=== PATIENT | female | born 1965 | race Caucasian/White ===

== ENCOUNTER 2017-09-11 01:36 | Emergency (ER) | payer MEDICARE ==
--- OUTSIDE RECORDS SUMMARY | 2017-09-11 01:44 | XMS REPORT ---
:1965 External Reference #:[id number] Author Organization [facility] Address [address] [place] [address] Phone [phone] Care Team Providers Name Role Phone Daniela Segovia MD Primary Care Physician Unavailable Payers Type Date Identification Payment Subscriber Numbers Provider Health Maintenance Effective: Policy Number: Medicare Chucky Akhtar (O) 06/10/2013 [id number] [facility] Group Number: [id number] [address] [address] PayID: [id number] [place] [address] Medigap Part B Expires: 06/09/2013 Policy Number: [facility] Lianna Beard [id number] Group Number: [id number] [address] PayID: [id number] [place] [address] Advance Directives Type Date Description Status Comment Other Directive 06/02/2014 Health Care Proxy Current and Verified Problems Date Description Provider Status Onset: 02/21/2011 Asthma without status asthmaticus Tete Chaparro, N.P. Active Onset: 02/21/2011 Gastroesophageal reflux disease Tete Chaparro, N.P. Active Onset: 02/21/2011 Gout Tete Chaparro N.P. Active Onset: 04/25/2015 Shoulder joint pain Jackson Fan M.D. Active Onset: 08/13/2017 Strain of musc/tend the rotator cuff of Janet Garcia MD Active left shoulder, subs Onset: 08/13/2017 Derangement of knee Janet Garcia MD Active Onset: 08/13/2017 Knee pain Janet Garcia MD Active Onset: 08/13/2017 Prosthetic arthroplasty of shoulder Janet Garcia MD Active Onset: 08/13/2017 Localized, primary osteoarthritis of the Janet Garcia MD Active shoulder region Family History Date Family Member(s) Problem(s) Comments General Diabetes General Heart Disease General Hypertension General Cancer Father due to Fractured back and () - age 86 Ribs Father [place] Father Hypertension Father Cancer, Esophagus Father Hyperlipidemia Father Arthritis, Osteo Mother due to Bradycardia () Mother due to Cancer, Lung () - in her 70's Cervical cancer, Hyperlipidemia,HTN First Brother Mental Illness age 54 Second Brother Hyperlipidemia Second Brother [place] Age 56 First Sister Mental Illness In a wheelchair but no one knows why age 58 Second Sister 52 Mental Illness Social History Type Date Description Comments Lives With spouce 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 Nebulizer 06/24/ Active Misc 1unit use as 466.0 2014 s needed Varn, N.P. Flovent HFA 06/24/ Active Aerosol 110mcg/Ac 12uni Inhale 2 Tete 2015 t ts Puffs By Varn, Mouth Two N.P. Times A Day as Needed Synthroid 01/17/ Active Tablets 50mcg 30tab Take One Tete 2014 s Tablet By Varn, Mouth Every N.P. Day Ventolin HFA 04/15/ Active Aerosol 108(90Bas 1unit 2 puffs by Tete 2012 e) s mouth four Varn, mcg/Act times a day N.P. as needed Tramadol HCL / Active Tablets 50mg 120ta 1 tablet by Jackson 0000 bs mouth four Young, times a day M.D. as needed prn pain Senna S / Active Tablets 8.6-50mg 2 po qd prn Unknown 0000 Miralax / Active Powder 3350NF 238gm 17 gm qd Unknown 0000 mixed w/ 8 oz water/juice Zofran / Active Tablets 4mg 60tab 1 every 6 Tete 0000 s hours as Varn, needed N.P. nausea Calcium Chew / Active 500mg 90uni Two by mouth Unknown 0000 ts every day Tramadol HCL / Active Tablets ER 100mg 15tab 1 tabs by Unknown ER 0000 24HR s mouth every day Gabapentin / Active Capsules 300mg 120ca Take One Tete 0000 ps Capsule By Varn, Mouth Every N.P. Morning One Capsule In Afternoon Lyrica / Active Capsules 150mg take one cap Unknown 0000 at bedtime Colchicine / Active Tablets 0.6mg 1 by mouth Unknown 0000 twice a day Co-Enzyme Q-10 / Active Capsules 100mg 1 by mouth Unknown 0000 every day Fish Oil / Active Capsules 500mg 1 by mouth Unknown 0000 twice a day(pt is now taking lovaza) Tylenol / Active Capsules 325mg 2 tablets Unknown 0000 every 4 hours as needed for pain Azithromycin 04/29/ Hx Tablets 250mg 6tabs two tabs day Tete 2016 - one, one Varn, 05/09/ daily till N.P. 2017 gone Benzonatate 04/29/ Hx Capsules 100mg 30cap one by mouth Tete 2016 three times Varn, 05/13/ daily as N.P. 2017 needed for cough Prednisone 11/26/ Hx Tablets 20mg 30tab 3 tabs daily L23.7 Tete 2016 for 3 days, Varn, 02/18/ 2 tabs daily N.P. 2017 for 3 days, 1 tab daily for 7 days, 1/2 tab for 14 days Prednisone 01/05/ Hx Tablets 10mg 40tab 4 tablets by R21 Tete 2015 mouth for 4 Varn, 01/21/ days 3 N.P. 2016 tablets by mouth for 4 days 2 tablets by mouth for 4 days 1 tablet by mouth for 4 days Cetirizine HCL 01/05/ Hx Tablets 10mg 30tab 1 by mouth R21 Tete 2015 every day Varn, 02/18/ N.P. 2017 Ranitidine HCL 07/29/ Hx Capsules 150mg 60cap one capsule R21 [place] 2015 - s every 12 Varn, 02/18/ hours N.P. 2016 Lansoprazole 01/17/ Hx Capsules DR 30mg 90cap 1 by mouth [place] 2014 - s every day Varn, 01/05/ N.P. 2015 Nystatin 08/23/ Hx Suspension [id number] 16oz 4 112.0 [place] 2015 - t/ML milliliters Varn, 09/06/ four times a N.P. 2014 day, swish and swallow for 14 days Prednisone 06/24/ Hx Tablets 10mg 40tab as directed 466.0 [place] 2014 - s Varn, 07/10/ N.P. 2014 Ipratropium 06/24/ Hx Solution 0.5-2.5(3 60uni 1 vial in [facility].0 [place] 2014 - )mg/3ML ts nebulizer Varn, rol Sulfate 08/08/ three times N.P. 2014 a day as needed for asthma 493.90 Benzonatate 06/17/2014 - Hx Capsules 100mg 30caps one by mouth [place] 07/01/2014 three times Varn, N.P. daily as needed for cough Azithromycin 06/09/2014 - Hx Tablets 250mg 6tabs two tabs day [address] [place] [address] 06/19/2014 one, one daily .0 Varn, N.P. till gone Medrol (Severino) 06/09/2014 - Hx Tablets 4mg 1Pak as directed [address] [place] [address] 06/15/2014 .0 Varn, N.P. Prevacid 12/30/2013 - Hx Capsules DR 30mg 30caps Take One 530 [place] 01/06/2016 Capsule By .81 Varn, N.P. Mouth Every Day Benzonatate 09/10/2013 - Hx Capsules 100mg 30caps one by mouth [place] 09/24/2013 three times Varn, N.P. daily as needed for cough Azithromycin 09/08/2013 - Hx Tablets 250mg 6tabs two tabs day [address] [place] [address] 09/18/2013 one, one daily .0 Varn, N.P. till gone Medrol (Severino) 09/08/2013 - Hx Tablets 4mg 1Pak as directed [address] [place] [address] 09/14/2013 .0 Varn, N.P. Oxycontin 04/15/2012 - Hx Tablets ER 10mg 40tabs 1 po bid Jackson 12/29/2012 12HR Eugenia Fan Zofran Odt 04/04/2012 - Hx Tablets 4mg 40tabs q4-6h prn Jackson 04/18/2012 Dispers Eugenia Fan Oxycontin 03/20/2012 - Hx Tablets ER 10mg 56tabs 7 tabs po for Jackson 03/20/2012 12HR two days, Eugenia Fan decrease dose by two tabs every two days. Oxycodone HCL 03/20/2012 - Hx Tablets 5mg 90tabs 1-2 po q3h prn Jackson 06/19/2013 breakthrough Eugenia Fan pain Oxycontin 03/20/2012 - Hx Tablets ER 10mg 112tabs Take 7 tabs po Jackson 12/29/2012 12HR bid for 2 days, Eugenia Fan then reduce dose by one tab every two days. Oxycontin 02/12/2012 - Hx Tablets ER 40mg 60tabs 1 po q 4 hours Jackson 12/29/2012 12HR prn pain Eugenia Fan Colace 02/06/2012 - Hx Capsules 100mg 30caps take 1 tablet Jackson 12/29/2012 po bid prn Eugenia Fan consitpation Transderm-Scop 01/16/2012 - Hx Patches 1.5mg 3units 1 patch q 3 Jackson 06/19/2013 72HR days. Apply Eugenia Fan first one the night before surgery. prn nausa Xanax 09/07/2011 - Hx Tablets 1mg 1tabs Take 1 tab po Jackson 01/07/2012 30minutes prior Eugenia Fan to procedure. Lidoderm 02/21/2011 - Hx Patches 5% 30units apply to [facility] 07/06/2011 affected area .41 Cotton, for 12 hrs, Eugenia remove for 12 hrs and repeat prn Ibuprofen 02/21/2011 - Hx Tablets 600mg 120tabs take one tablet M25 Tete 06/17/2015 by mouth every .51 Varn, N.P. 8 hours as 1 needed for pain M19.90 Ultram 07/24/2010 - Hx Tablets 50mg 60tabs 1-2 tablets Daniela 01/07/2012 every 6 Cotton, M.D. hours as needed Tylenol/Codein 05/15/2010 - Hx Tablets 300-30m 20tabs one tablet alex [place] #3 07/24/2010 g by mouth 4 M.D., FACP to 6 hours as needed for pain Flovent HFA 03/16/2010 - Hx Aerosol 44mcg/A 10.600gm 2 puffs Tete 06/24/2014 ct twice daily Varn, N.P. Zithromax 03/16/2010 - Hx Tablets 250mg 1Pack two po Daniela Z-Severino 03/26/2010 initially Eugenia Segovia then one po daily Robitussin ac 03/16/2010 - Hx Solution 120cc 1 to 2 tsp [facility] 03/26/2010 every 4 Cotton, M.DKeyonna hours as needed for cough Albuterol - Hx Aerosol 90mcg/A 1units 2 puffs 4 Daniela 04/15/2013 ct times a day Eugenia Segovia as needed Oxycodone/Acet - Hx Tablets 5-325mg 120tabs one tablet Unknown aminophen 07/06/2011 every 6 hrs as needed Ibuprofen - Hx Tablets 600mg 90tabs 1 tablet Daniela 12/29/2012 every 6 hrs Eugenia Segovia as needed Tramadol HCL - Hx Tablets ER 200mg 30tabs once daily CARTER Paredes 05/10/2014 24HR Pt states Sagr[place]. 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 Immunizations CPT Code Status Date Vaccine Lot # 53260 Given 03/08/2017 Influenza Virus Vaccine, Quadrivalent, Split, Preservative Free Q2039 Given 03/16/2016 Flu Vaccine NOS 37387 Given 03/20/2015 Flu Vaccine Split Virus Preservative Free For Indiv 3Yr Older Q2038 Given 04/04/2014 Fluzone Vaccine Q2038 Given 03/28/2013 Fluzone Vaccine 47772 Given 12/29/2012 Pneumonia Vaccine [id number] 62504 Given 12/29/2012 Tdap - Tetanus/Diptheria/Acellular Pertussis [id number] Q2035 Given 04/17/2012 Afluria Vaccine 85764 Given 04/06/2011 Influenza Virus 3Yrs & Over [id number] 42996 Given 05/04/2009 Influenza Virus Vaccine, Pandemic Formulation 52114 Given 05/04/2009 Administration Swine Flu Shot 05857 Given 02/24/2009 Influenza Virus 3Yrs & Over Vital Signs Date Vital Result Comment 08/23/2017 Height 61.25 inches 5'1.25" Weight 127.00 lb Heart Rate 63 /min BP Systolic 126 mmHg BP Diastolic 70 mmHg Body Temperature 97.5 F O2 % BldC Oximetry 98 % BMI (Body Mass Index) 23.8 kg/m2 08/13/2017 Height 61 inches 5'1" Weight 125.00 lb w/o shoes Heart Rate 56 /min reg BP Systolic Sitting 140 mmHg Lue BP Diastolic Sitting 90 mmHg Lue Respiratory Rate 16 /min Pain Level 6 right shoulder BMI (Body Mass Index) 23.6 kg/m2 02/19/2017 Height 61 inches 5'1" Weight 122.00 lb Heart Rate 56 /min BP Systolic 120 mmHg BP Diastolic 72 mmHg Body Temperature 97.0 F Pain Level 5 BMI (Body Mass Index) 23.0 kg/m2 11/26/2016 Heart Rate 57 /min BP Systolic 120 mmHg BP Diastolic 68 mmHg Body Temperature 98.6 F O2 % BldC Oximetry 99 % 10/03/2016 Weight 119.00 lb Heart Rate 67 /min BP Systolic Sitting 102 mmHg BP Diastolic Sitting 62 mmHg Pain Level 5 R hip, leg, foot O2 % BldC Oximetry 98 % 08/20/2016 Height 61 inches 5'1" Weight 119.00 lb Heart Rate 56 /min BP Systolic 100 mmHg BP Diastolic 54 mmHg O2 % BldC Oximetry 98 % BMI (Body Mass Index) 22.5 kg/m2 01/06/2016 Weight 118.00 lb Heart Rate 66 /min BP Systolic Sitting 118 mmHg BP Diastolic Sitting 76 mmHg Body Temperature 96.3 F O2 % BldC Oximetry 98 % 06/17/2015 Height 61 inches 5'1" Weight 125.00 lb Heart Rate 66 /min BP Systolic Sitting 122 mmHg BP Diastolic Sitting 80 mmHg Respiratory Rate 15 /min Body Temperature 98.4 F O2 % BldC Oximetry 98 % BMI (Body Mass Index) 23.6 kg/m2 04/25/2015 Height 61 inches 5'1" Weight 125.00 lb Pain Level 6 BMI (Body Mass Index) 23.6 kg/m2 04/05/2015 Height 61 inches 5'1" Weight 125.00 lb Pain Level 5 BMI (Body Mass Index) 23.6 kg/m2 01/17/2015 Height 61 inches 5'1" Weight 125.00 lb Heart Rate 62 /min BP Systolic Sitting 118 mmHg BP Diastolic Sitting 72 mmHg Body Temperature 98.0 F O2 % BldC Oximetry 98 % BMI (Body Mass Index) 23.6 kg/m2 12/31/2014 Height 61 inches 5'1" Weight 127.00 lb Heart Rate 66 /min BP Systolic 130 mmHg BP Diastolic 80 mmHg Body Temperature 98.4 F BMI (Body Mass Index) 24.0 kg/m2 08/23/2014 Weight 133.00 lb Heart Rate 64 /min BP Systolic Sitting 115 mmHg BP Diastolic Sitting 79 mmHg 07/02/2014 Weight 126.00 lb Heart Rate 72 /min BP Systolic 138 mmHg BP Diastolic 79 mmHg Body Temperature 97.6 F O2 % BldC Oximetry 98 % 06/24/2014 Weight 126.50 lb Heart Rate 60 /min BP Systolic Sitting 120 mmHg BP Diastolic Sitting 82 mmHg Body Temperature 96.4 F O2 % BldC Oximetry 95 % 06/09/2014 Height 61 inches 5'1" Weight 128.00 lb Heart Rate 62 /min BP Systolic Sitting 90 mmHg BP Diastolic Sitting 60 mmHg Body Temperature 100.2 F O2 % BldC Oximetry 96 % BMI (Body Mass Index) 24.2 kg/m2 05/10/2014 Height 61 inches 5'1" Weight 131.00 lb Heart Rate 68 /min BP Systolic Sitting 136 mmHg BP Diastolic Sitting 78 mmHg BMI (Body Mass Index) 24.7 kg/m2 12/30/2013 Height 61 inches 5'1" Weight 129.75 lb Heart Rate 69 /min BP Systolic Sitting 121 mmHg BP Diastolic Sitting 75 mmHg Body Temperature 98.5 F BMI (Body Mass Index) 24.5 kg/m2 09/08/2013 Weight 133.00 lb Heart Rate 55 /min BP Systolic Sitting 118 mmHg BP Diastolic Sitting 64 mmHg Respiratory Rate 15 /min Body Temperature 98.6 F O2 % BldC Oximetry 97 % 06/19/2013 Weight 131.00 lb Heart Rate 62 /min BP Systolic Sitting 118 mmHg BP Diastolic Sitting 66 mmHg 12/29/2012 Height 61 inches 5'1" Weight 129.00 lb Heart Rate 60 /min BP Systolic Sitting 138 mmHg BP Diastolic Sitting 60 mmHg BMI (Body Mass Index) 24.4 kg/m2 01/07/2012 Height 61 inches 5'1" Weight 136.00 lb Heart Rate 60 /min BP Systolic Sitting 116 mmHg BP Diastolic Sitting 78 mmHg BMI (Body Mass Index) 25.7 kg/m2 07/31/2011 Height 61 inches 5'1" Weight 133.00 lb Heart Rate 79 /min BP Systolic 135 mmHg BP Diastolic 91 mmHg BMI (Body Mass Index) 25.1 kg/m2 07/20/2011 Height 61 inches 5'1" Weight 137.00 lb Heart Rate 72 /min BP Systolic Sitting 106 mmHg BP Diastolic Sitting 68 mmHg BMI (Body Mass Index) 25.9 kg/m2 07/06/2011 Height 61 inches 5'1" Weight 135.00 lb Heart Rate 84 /min BP Systolic Sitting 122 mmHg BP Diastolic Sitting 68 mmHg BMI (Body Mass Index) 25.5 kg/m2 02/21/2011 Height 61 inches 5'1" Weight 130.00 lb Heart Rate 60 /min BP Systolic Sitting 124 mmHg BP Diastolic Sitting 62 mmHg BMI (Body Mass Index) 24.6 kg/m2 07/24/2010 Height 61 inches 5'1" Weight 134.00 lb Heart Rate 60 /min BP Systolic 102 mmHg BP Diastolic 62 mmHg BMI (Body Mass Index) 25.3 kg/m2 03/16/2010 Weight 131.00 lb Heart Rate 62 /min BP Systolic 106 mmHg BP Diastolic 70 mmHg Body Temperature 98.6 F Results Test Date Test Result H/L Range Note Laboratory test finding 11/13/2016 CRP High Sensitivity 0.39 mg/L 1 Lipid Profile 11/13/2016 Triglycerides 75 mg/dL 2 (Trig/Chol/HDL) Cholesterol 202 mg/dL 3 HDL Cholesterol 55.8 mg/dL 4 LDL Cholesterol 131 mg/dL 5 Laboratory test finding 10/03/2016 Uric Acid 5.0 mg/dL 2.3-6.6 Laboratory test finding 08/23/2016 Lyme Disease Serology Negative Negative 6 Rheumatoid Factor <15 IU/mL <15 7 Erythrocyte Sed Rate 14 mm/Hr 0-30 Comp Metabolic Panel 08/11/2016 Sodium 138 mmol/L 133-145 Potassium 4.2 mmol/L 3.5-5.0 Chloride 104 mmol/L 101-111 Co2 Carbon Dioxide 33 mmol/L High 22-32 Anion Gap 1 mmol/L Low 2-11 Glucose 79 mg/dL 70-100 Blood Urea Nitrogen 13 mg/dL 6-24 Creatinine 0.79 mg/dL 0.51-0.95 BUN/Creatinine Ratio 16.5 8-20 Calcium 9.3 mg/dL 8.6-10.3 Total Protein 6.1 g/dL Low 6.4-8.9 Albumin 3.7 g/dL 3.2-5.2 Globulin 2.4 g/dL 2-4 Albumin/Globulin Ratio 1.5 1-3 Total Bilirubin 0.60 mg/dL 0.2-1.0 Alkaline Phosphatase 68 U/L 34-104 Alt 18 U/L 7-52 Ast 18 U/L 13-39 Egfr Non- 76.1 >60 Egfr 97.9 >60 8 Lipid Profile (Trig/Chol/HDL) 08/11/2016 Triglycerides 82 mg/dL 9 Cholesterol 220 mg/dL 10 HDL Cholesterol 52.6 mg/dL 11 LDL Cholesterol 151 mg/dL 12 Comp Metabolic Panel 06/17/2015 Sodium 137 mmol/L 133-145 Potassium 4.5 mmol/L 3.5-5.0 Chloride 103 mmol/L 101-111 Co2 Carbon Dioxide 31 mmol/L 22-32 Anion Gap 3 mmol/L 2-11 Glucose 89 mg/dL 70-100 Blood Urea Nitrogen 13 mg/dL 6-24 Creatinine 0.82 mg/dL 0.51-0.95 BUN/Creatinine Ratio 15.9 8-20 Calcium 9.8 mg/dL 8.6-10.3 Total Protein 6.8 g/dL 6.4-8.9 Albumin 4.2 g/dL 3.2-5.2 Globulin 2.6 g/dL 2-4 Albumin/Globulin Ratio 1.6 1-3 Total Bilirubin 0.60 mg/dL 0.2-1.0 Alkaline Phosphatase 46 U/L 34-104 Alt 12 U/L 7-52 Ast 15 U/L 13-39 Egfr Non- 73.2 >60 Egfr 94.1 >60 13 Laboratory test 06/17/2015 Urine Culture And SEE RESULT BELOW 14 finding Sensitivities Comp Metabolic Panel 01/05/2015 Sodium 138 mmol/L 133-145 Potassium 4.1 mmol/L 3.5-5.0 Chloride 102 mmol/L 101-111 Co2 Carbon Dioxide 32 mmol/L 22-32 Anion Gap 4 mmol/L 2-11 Glucose 71 mg/dL 70-100 Blood Urea Nitrogen 13 mg/dL 6-24 Creatinine 0.74 mg/dL 0.51-0.95 BUN/Creatinine Ratio 17.6 8-20 Calcium 9.3 mg/dL 8.6-10.3 Total Protein 6.2 g/dL Low 6.4-8.9 Albumin 3.8 g/dL 3.2-5.2 Globulin 2.4 g/dL 2-4 Albumin/Globulin Ratio 1.6 1-3 Total Bilirubin 0.60 mg/dL 0.2-1.0 Alkaline Phosphatase 51 U/L 34-104 Alt 12 U/L 7-52 Ast 10 U/L Low 13-39 Egfr Non- 82.7 >60 Egfr 106.4 >60 15 Lipid Profile (Trig/Chol/HDL) 01/05/2015 Triglycerides 72 mg/dL 16 Cholesterol 223 mg/dL 17 HDL Cholesterol 64.1 mg/dL 18 LDL Cholesterol 145 mg/dL 19 Comp Metabolic Panel 09/23/2014 Sodium 138 mmol/L 133-145 Potassium 4.3 mmol/L 3.5-5.0 Chloride 102 mmol/L 101-111 Co2 Carbon Dioxide 32 mmol/L 22-32 Anion Gap 4 mmol/L 2-11 Glucose 82 mg/dL 70-100 Blood Urea Nitrogen 15 mg/dL 6-24 Creatinine 0.77 mg/dL 0.51-0.95 BUN/Creatinine Ratio 19.5 8-20 Calcium 9.6 mg/dL 8.6-10.3 Total Protein 6.4 g/dL 6.4-8.9 Albumin 4.1 g/dL 3.2-5.2 Globulin 2.3 g/dL 2-4 Albumin/Globulin Ratio 1.8 1-3 Total Bilirubin 0.60 mg/dL 0.2-1.0 Alkaline Phosphatase 49 U/L 34-104 Alt 13 U/L 7-52 Ast 15 U/L 13-39 Egfr Non- 79.0 >60 Egfr 101.6 >60 20 Comp Metabolic Panel 06/21/2014 Sodium 138 mmol/L 133-145 Potassium 4.1 mmol/L 3.5-5.0 Chloride 104 mmol/L 101-111 Co2 Carbon Dioxide 30 mmol/L 22-32 Anion Gap 4 mmol/L 2-11 Glucose 92 mg/dL 70-100 Blood Urea Nitrogen 11 mg/dL 6-24 Creatinine 0.83 mg/dL 0.51-0.95 BUN/Creatinine Ratio 13.3 8-20 Calcium 9.4 mg/dL 8.6-10.3 Total Protein 6.7 g/dL 6.4-8.9 Albumin 3.8 g/dL 3.2-5.2 Globulin 2.9 g/dL 2-4 Albumin/Globulin Ratio 1.3 1-3 Total Bilirubin 0.60 mg/dL 0.2-1.0 Alkaline Phosphatase 51 U/L 34-104 Alt 16 U/L 7-52 Ast 14 U/L 13-39 Egfr Non- 72.5 >60 Egfr 93.2 >60 21 Laboratory test finding 03/03/2014 TSH (Thyroid Stimulating 1.89 IU/mL 0.34-5.60 Horm) Comp Metabolic Panel 02/18/2014 Sodium 137 mmol/L 133-145 Potassium 4.6 mmol/L 3.7-5.6 Chloride 103 mmol/L 101-111 Co2 Carbon Dioxide 29 mmol/L 22-32 Anion Gap 5 mmol/L 2-11 Glucose 82 mg/dL 70-100 Blood Urea Nitrogen 14 mg/dL 6-24 Creatinine 0.72 mg/dL 0.51-0.95 BUN/Creatinine Ratio 19.4 8-20 Calcium 9.3 mg/dL 8.6-10.3 Total Protein 7.1 g/dL 6.4-8.9 Albumin 4.1 g/dL 3.2-5.2 Globulin 3.0 g/dL 2-4 Albumin/Globulin Ratio 1.4 1-3 Total Bilirubin 0.60 mg/dL 0.2-1.0 Alkaline Phosphatase 49 U/L 34-104 Alt 14 U/L 7-52 Ast 17 U/L 13-39 Egfr Non- 85.7 >60 Egfr 110.3 >60 22 Laboratory test 01/11/2014 TSH (Thyroid 5.67 IU/mL High 0.34-5.60 23, 24 finding Stimulating Horm) Comp Metabolic Panel 01/11/2014 Sodium 138 mmol/L 133-145 23 Potassium 4.1 mmol/L 3.7-5.6 23 Chloride 104 mmol/L 101-111 23 Co2 Carbon Dioxide 31 mmol/L 22-32 23 Anion Gap 3 mmol/L 2-11 23 Glucose 88 mg/dL 70-100 23 Blood Urea Nitrogen 16 mg/dL 6-24 23 Creatinine 0.81 mg/dL 0.51-0.95 23 BUN/Creatinine Ratio 19.8 8-20 23 Calcium 9.1 mg/dL 8.6-10.3 23 Total Protein 6.8 g/dL 6.4-8.9 23 Albumin 4.1 g/dL 3.2-5.2 23 Globulin 2.7 g/dL 2-4 23 Albumin/Globulin Ratio 1.5 1-3 23 Total Bilirubin 0.60 mg/dL 0.2-1.0 23 Alkaline Phosphatase 56 U/L 34-104 23 Alt 11 U/L 7-52 23 Ast 14 U/L 13-39 23 Egfr Non- 74.8 >60 23 Egfr 96.3 >60 23, 25 Lipid Profile (Trig/Chol/HDL) 01/11/2014 Triglycerides 102 mg/dL 23, 26 Cholesterol 201 mg/dL 23, 27 HDL Cholesterol 53.6 mg/dL 23, 28 LDL Cholesterol 127 mg/dL 23, 29 CBC With Manual Diff 01/11/2014 White Blood Count 5.7 10^3/uL 4.8-10.8 23 Red Blood Count 4.54 10^6/uL 4.0-5.4 23 Hemoglobin 14.1 g/dL 12.0-16.0 23 Hematocrit 41 % 35-47 23 Mean Corpuscular Volume 91 fL 80-97 23 Mean Corpuscular Hemoglobin 31 pg 27-31 23 Mean Corpuscular HGB Conc 34 g/dL 31-36 23 Red Cell Distribution Width 13 % 10.5-15 23 Platelet Count 217 10^3/uL 150-450 23 Mean Platelet Volume 10 um3 7.4-10.4 23 Abs Neutrophils 3.1 10^3/uL 1.5-7.7 23 Abs Lymphocytes 2.0 10^3/uL 1.0-4.8 23 Abs Monocytes 0.4 10^3/uL 0-0.8 23 Abs Eosinophils 0.2 10^3/uL 0-0.6 23 Abs Basophils 0 10^3/uL 0-0.2 23 Abs Nucleated RBC 0 10^3/uL 23 Neutrophil % 59 % 38-83 23 Lymphocytes % 35 % 25-47 23 Monocytes % 1 % 0-13 23 Eosinophils % 5 % 0-6 23 RBC Morphology Normal Normal 23 Laboratory test 12/30/2013 Cytology RUN DATE: finding <SEE NOTE> HPV High Risk 12/30/2013 Human Papillomavirus See Comment 31 Source HPV High Risk Type 16, PCR Negative Negative HPV High Risk Type 18, PCR Negative Negative HPV Other Risk types Negative Negative 32 Laboratory test finding 11/12/2013 Inr 0.94 0.85-1.06 Activated Partial Thrombo Time 32.1 seconds 24.0-36.1 Comp Metabolic Panel 11/12/2013 Sodium 137 mmol/L 133-145 Potassium 4.8 mmol/L 3.7-5.6 Chloride 105 mmol/L 101-111 Co2 Carbon Dioxide 29 mmol/L 22-32 Anion Gap 3 mmol/L 2-11 Glucose 83 mg/dL 70-100 Blood Urea Nitrogen 13 mg/dL 6-24 Creatinine 0.78 mg/dL 0.51-0.95 BUN/Creatinine Ratio 16.7 8-20 Calcium 9.3 mg/dL 8.6-10.3 Total Protein 6.8 g/dL 6.4-8.9 Albumin 4.1 g/dL 3.2-5.2 Globulin 2.7 g/dL 2-4 Albumin/Globulin Ratio 1.5 1-3 Total Bilirubin 0.60 mg/dL 0.2-1.0 Alkaline Phosphatase 49 U/L 34-104 Alt 13 U/L 7-52 Ast 16 U/L 13-39 Egfr Non- 78.2 >60 Egfr 100.5 >60 33 Comp Metabolic Panel 08/12/2013 Sodium 137 mmol/L 133-145 Potassium 5.0 mmol/L 3.7-5.6 Chloride 104 mmol/L 101-111 Co2 Carbon Dioxide 29 mmol/L 22-32 Anion Gap 4 mmol/L 2-11 Glucose 85 mg/dL 70-100 Blood Urea Nitrogen 13 mg/dL 6-24 Creatinine 0.78 mg/dL 0.51-0.95 BUN/Creatinine Ratio 16.7 8-20 Calcium 9.9 mg/dL 8.6-10.3 Total Protein 7.0 g/dL 6.4-8.9 Albumin 4.3 g/dL 3.2-5.2 Globulin 2.7 g/dL 2-4 Albumin/Globulin Ratio 1.6 1-3 Total Bilirubin 0.70 mg/dL 0.2-1.0 Alkaline Phosphatase 48 U/L 34-104 Alt 13 U/L 7-52 Ast 16 U/L 13-39 Egfr Non- 78.2 >60 Egfr 100.5 >60 34 Comp Metabolic Panel 04/13/2013 Sodium 138 mmol/L 133-145 Potassium 4.4 mmol/L 3.5-5.0 Chloride 103 mmol/L 101-111 Co2 Carbon Dioxide 30.0 mmol/L 22-32 Anion Gap 5.0 mmol/L 2-11 Glucose 61 mg/dL Low 70-100 Blood Urea Nitrogen 15 mg/dL 6-24 Creatinine 0.60 mg/dL 0.50-1.40 BUN/Creatinine Ratio 25.0 High 8-20 Calcium 9.7 mg/dL 8.1-9.9 Total Protein 6.6 g/dL 6.2-8.1 Albumin 3.8 g/dL 3.6-5.4 Globulin 2.8 g/dL 2-4 Albumin/Globulin Ratio 1.4 1-3 Total Bilirubin 0.9 mg/dL 0.4-1.5 Alkaline Phosphatase 58 U/L 30-110 Alt 16 U/L 14-54 Ast 18 U/L 12-42 Egfr Non- 106.3 >60 Egfr 136.6 >60 35 Lipid Profile (Trig/Chol/HDL) 01/07/2013 Triglycerides 89 mg/dL 40-200 Cholesterol 186 mg/dL Less than 200 HDL Cholesterol 50 mg/dL 40-60 36 Cholesterol/HDL Ratio 3.7 Average 1-4.44 LDL Cholesterol 118.2 High Less Than 100 37 Comp Metabolic Panel 01/07/2013 Sodium 138 mmol/L 133-145 Potassium 4.4 mmol/L 3.5-5.0 Chloride 105 mmol/L 101-111 Co2 Carbon Dioxide 29.0 mmol/L 22-32 Anion Gap 4.0 mmol/L 2-11 Glucose 91 mg/dL 70-100 Blood Urea Nitrogen 14 mg/dL 6-24 Creatinine 0.80 mg/dL 0.50-1.40 BUN/Creatinine Ratio 17.5 8-20 Calcium 9.6 mg/dL 8.1-9.9 Total Protein 6.2 g/dL 6.2-8.1 Albumin 3.6 g/dL 3.6-5.4 Globulin 2.6 g/dL 2-4 Albumin/Globulin Ratio 1.4 1-3 Total Bilirubin 0.7 mg/dL 0.4-1.5 Alkaline Phosphatase 47 U/L 30-110 Alt 13 U/L Low 14-54 Ast 15 U/L 12-42 Egfr Non- 76.2 >60 Egfr 98.0 >60 38 Laboratory test 01/07/2013 TSH (Thyroid Stimulating 4.31 miu/mL 0.34- 5.60 39 finding Horm) Human Papilloma Virus 12/31/2012 Human Papillomavirus See Comment 40 Source Human Papillomavirus High Risk Negative Negative 41 Laboratory test finding 12/29/2012 Cytology RUN DATE: 12/31/ <SEE 42 NOTE> Comp Metabolic Panel 10/22/2012 Sodium 136 mmol/L 133-145 Potassium 4.9 mmol/L 3.5-5.0 Chloride 102 mmol/L 101-111 Co2 Carbon Dioxide 27.0 mmol/L 22-32 Anion Gap 7.0 mmol/L 2-11 Glucose 134 mg/dL High 70-100 Blood Urea Nitrogen 17 mg/dL 6-24 Creatinine 0.80 mg/dL 0.50-1.40 BUN/Creatinine Ratio 21.3 High 8-20 Calcium 9.4 mg/dL 8.1-9.9 Total Protein 6.5 g/dL 6.2-8.1 Albumin 3.8 g/dL 3.6-5.4 Globulin 2.7 g/dL 2-4 Albumin/Globulin Ratio 1.4 1-3 Total Bilirubin 0.7 mg/dL 0.4-1.5 Alkaline Phosphatase 53 U/L 30-110 Alt 16 U/L 14-54 Ast 20 U/L 12-42 Egfr Non- 76.2 >60 Egfr 98.0 >60 43 CBC No Diff 10/22/2012 White Blood Count 8.0 10^3/uL 4.8-10.8 Red Blood Count 4.28 10^6/uL 4.0-5.4 Hemoglobin 13.3 g/dL 12.0-16.0 Hematocrit 39 % 35-47 Mean Corpuscular Volume 92 fL 80-97 Mean Corpuscular Hemoglobin 31 pg 27-31 Mean Corpuscular HGB Conc 34 g/dL 31-36 Red Cell Distribution Width 13 % 10.5-15 Platelet Count 178 10^3/uL 150-450 Mean Platelet Volume 10 um3 7.4-10.4 CBC With Manual Diff 01/08/2012 White Blood Count 6.4 CUMM 4.8-10.8 Red Cell Count 3.99 CUMM Low 4.2-5.4 Hemoglobin 12.8 g/dL 12.0-16.0 Hematocrit 37 % 35-47 Mean Corpuscular Volume 93 um3 79-97 Mean Corpuscular Hemoglob 32 pg High 27-31 Mean Corpuscular HGB Cone 35 g/dL 32-36 Redcell Distribution WDTH 13 % 10.5-15 Platelet Count 194 CUMM 150-450 Mean Platelet Volume 9.8 um3 7.4-10.4 Absolute Neutrophil Count 4.3 1.5-7.7 Polysegmented Neutrophil 70 % 38-83 Lymphocyte 21 % Low 25-47 Monocyte 5 % 0-13 Eosinophil 4 % 0-6 RBC Morphology NORMAL Comp Metabolic Panel 01/08/2012 Sodium 136 mmol/L 135-145 Potassium 4.1 mmol/L 3.5-5.0 Chloride 102 mmol/L 101-111 Co2 (Carbon Dioxide) 28.0 mmol/L 22-32 Anion Gap 6.0 mmol/L 2-11 44 Glucose 113 mg/dL High 70-100 BUN 13 mg/dL 6-24 Creatinine 0.7 mg/dL 0.50-1.40 One Over Creatinine 1.42 BUN/Creatinine Ratio 18.6 8-20 Calcium 9.5 mg/dL 8.1-9.9 Total Protein 5.9 GM/DL Low 6.2-8.1 Albumin 3.6 GM/DL 3.6-5.4 Globulin 2.3 GM/DL 2-4 Albumin/Globulin Ratio 1.6 1-3 Bilirubin Total 1.0 mg/dL 0.4-1.5 45 Alkaline Phosphatase 51 U/L 30-110 Alt (SGPT) 20 U/L 14-54 Ast (Sgot) 18 U/L 12-42 eGFR Non- 89.3 > 60 eGFR 114.9 > 60 46 Protime 01/08/2012 Inr 0.89 0.88-1.13 47 Protime 10.5 SEC 10.3-13.5 48 Comp Metabolic Panel 11/01/2011 Sodium 137 mmol/L 135-145 Potassium 4.2 mmol/L 3.5-5.0 Chloride 107 mmol/L 101-111 Co2 (Carbon Dioxide) 27.0 mmol/L 22-32 Anion Gap 3.0 mmol/L 2-11 49 Glucose 67 mg/dL Low 70-100 BUN 13 mg/dL 6-24 Creatinine 0.8 mg/dL 0.50-1.40 One Over Creatinine 1.25 BUN/Creatinine Ratio 16.3 8-20 Calcium 9.1 mg/dL 8.1-9.9 Total Protein 6.2 GM/DL 6.2-8.1 Albumin 3.8 GM/DL 3.6-5.4 Globulin 2.4 GM/DL 2-4 Albumin/Globulin Ratio 1.6 1-3 Bilirubin Total 0.9 mg/dL 0.4-1.5 50 Alkaline Phosphatase 54 U/L 30-110 Alt (SGPT) 15 U/L 14-54 Ast (Sgot) 21 U/L 12-42 eGFR Non- 76.6 > 60 eGFR 98.5 > 60 51 CBC No Diff 11/01/2011 White Blood Count 5.6 CUMM 4.8-10.8 Red Cell Count 4.13 CUMM Low 4.2-5.4 Hemoglobin 13.4 g/dL 12.0-16.0 Hematocrit 38 % 35-47 Mean Corpuscular Volume 91 um3 79-97 Mean Corpuscular Hemoglob 32 pg High 27-31 Mean Corpuscular HGB Cone 36 g/dL 32-36 Redcell Distribution WDTH 13 % 10.5-15 Platelet Count 201 CUMM 150-450 Mean Platelet Volume 9.7 um3 7.4-10.4 Protime 07/19/2011 Inr 0.97 0.88-1.13 52 Protime 11.4 SEC 10.3-13.5 53 Comp Metabolic Panel 07/19/2011 Sodium 137 mmol/L 135-145 Potassium 4.3 mmol/L 3.5-5.0 Chloride 105 mmol/L 101-111 Co2 (Carbon Dioxide) 27.0 mmol/L 22-32 Anion Gap 5.0 mmol/L 2-11 54 Glucose 71 mg/dL 70-100 BUN 13 mg/dL 6-24 Creatinine 0.7 mg/dL 0.50-1.40 One Over Creatinine 1.42 BUN/Creatinine Ratio 18.6 8-20 Calcium 9.3 mg/dL 8.1-9.9 Total Protein 6.6 GM/DL 6.2-8.1 Albumin 3.9 GM/DL 3.6-5.4 Globulin 2.7 GM/DL 2-4 Albumin/Globulin Ratio 1.4 1-3 Bilirubin Total 0.9 mg/dL 0.4-1.5 55 Alkaline Phosphatase 52 U/L 30-110 Alt (SGPT) 17 U/L 14-54 Ast (Sgot) 18 U/L 12-42 eGFR Non- 89.3 > 60 eGFR 114.9 > 60 56 CBC No Diff 07/19/2011 White Blood Count 5.2 CUMM 4.8-10.8 Red Cell Count 4.23 CUMM 4.2-5.4 Hemoglobin 13.3 g/dL 12.0-16.0 Hematocrit 38 % 35-47 Mean Corpuscular Volume 90 um3 79-97 Mean Corpuscular Hemoglob 31 pg 27-31 Mean Corpuscular HGB Cone 35 g/dL 32-36 Redcell Distribution WDTH 13 % 10.5-15 Platelet Count 190 CUMM 150-450 Mean Platelet Volume 10.3 um3 7.4-10.4 Comp Metabolic Panel 06/27/2011 Sodium 135 mmol/L 135-145 Potassium 3.7 mmol/L 3.5-5.0 Chloride 101 mmol/L 101-111 Co2 (Carbon Dioxide) 29.0 mmol/L 22-32 Anion Gap 5.0 mmol/L 2-11 57 Glucose 112 mg/dL High 70-100 BUN 14 mg/dL 6-24 Creatinine 0.7 mg/dL 0.50-1.40 One Over Creatinine 1.42 BUN/Creatinine Ratio 20.0 8-20 Calcium 8.9 mg/dL 8.1-9.9 Total Protein 6.1 GM/DL Low 6.2-8.1 Albumin 3.8 GM/DL 3.6-5.4 Globulin 2.3 GM/DL 2-4 Albumin/Globulin Ratio 1.7 1-3 Bilirubin Total 0.9 mg/dL 0.4-1.5 58 Alkaline Phosphatase 50 U/L 30-110 Alt (SGPT) 15 U/L 14-54 Ast (Sgot) 17 U/L 12-42 eGFR Non- 89.3 > 60 eGFR 114.9 > 60 59 Comp Metabolic Panel 03/22/2011 Sodium 138 mmol/L 135-145 Potassium 4.5 mmol/L 3.5-5.0 Chloride 103 mmol/L 101-111 Co2 (Carbon Dioxide) 28.0 mmol/L 22-32 Anion Gap 7.0 mmol/L 2-11 60 Glucose 88 mg/dL 70-100 BUN 19 mg/dL 6-24 Creatinine 0.8 mg/dL 0.50-1.40 One Over Creatinine 1.25 BUN/Creatinine Ratio 23.8 High 8-20 Calcium 9.6 mg/dL 8.1-9.9 Total Protein 7.0 GM/DL 6.2-8.1 Albumin 4.0 GM/DL 3.6-5.4 Globulin 3.0 GM/DL 2-4 Albumin/Globulin Ratio 1.3 1-3 Bilirubin Total 0.9 mg/dL 0.4-1.5 61 Alkaline Phosphatase 56 U/L 30-110 Alt (SGPT) 16 U/L 14-54 Ast (Sgot) 18 U/L 12-42 eGFR Non- 76.9 > 60 eGFR 98.9 > 60 62 CBC No Diff 03/22/2011 White Blood Count 8.0 CUMM 4.8-10.8 Red Cell Count 4.34 CUMM 4.2-5.4 Hemoglobin 13.6 g/dL 12.0-16.0 Hematocrit 40 % 35-47 Mean Corpuscular Volume 92 um3 79-97 Mean Corpuscular Hemoglob 31 pg 27-31 Mean Corpuscular HGB Cone 34 g/dL 32-36 Redcell Distribution WDTH 14 % 10.5-15 Platelet Count 214 CUMM 150-450 Mean Platelet Volume 10.2 um3 7.4-10.4 1 Low risk: <1.00 Average risk: 1.00-3.00 High risk: >3.00 2 Desirable <150 Borderline high 150-199 High 200-499 Very High >500 3 Desirable <200 Borderline high 200-239 High >239 4 Low <40 Desirable: 40-60 High: >60 5 Desirable: <100 mg/dL Near Optimal: 100-129 mg/dL Borderline High: 130-159 mg/dL High: 160-189 mg/dL Very High: >189 mg/dL 6 Serologic response to B. burgdorferi infection is not detected, but cannot rule out early infection during which low or undetectable antibody levels to B. burgdorferi may be present. If clinically indicated, a new serum specimen should be submitted in 7-14 days. Test Performed by: [facility] [place] [address] 7 Test Performed by: [place] [address] 8 Because ethnic data is not always readily available, this report includes an eGFR for both -Americans and non- Americans. The National Kidney Disease Education Program (NKDEP) does not endorse the use of the MDRD equation for patients that are not between the ages of 18 and 70, are , have extremes of body size, muscle mass, or nutritional status, or are non- or non-. According to the National Kidney Foundation, irrespective of diagnosis, the stage of the disease is based on the level of kidney function: Stage Description GFR(mL/min/1.73 m(2)) 1 Kidney damage with normal or decreased GFR 90 2 Kidney damage with mild decrease in GFR 60-89 3 Moderate decrease in GFR 30-59 4 Severe decrease in GFR 15-29 5 Kidney failure <15 (or dialysis) 9 Desirable <150 Borderline high 150-199 High 200-499 Very High >500 10 Desirable <200 Borderline high 200-239 High >239 11 Low <40 Desirable: 40-60 High: >60 12 Desirable: <100 mg/dL Near Optimal: 100-129 mg/dL Borderline High: 130-159 mg/dL High: 160-189 mg/dL Very High: >189 mg/dL 13 Because ethnic data is not always readily available, this report includes an eGFR for both -Americans and non- Americans. The National Kidney Disease Education Program (NKDEP) does not endorse the use of the MDRD equation for patients that are not between the ages of 18 and 70, are , have extremes of body size, muscle mass, or nutritional status, or are non- or non-. According to the National Kidney Foundation, irrespective of diagnosis, the stage of the disease is based on the level of kidney function: Stage Description GFR(mL/min/1.73 m(2)) 1 Kidney damage with normal or decreased GFR 90 2 Kidney damage with mild decrease in GFR 60-89 3 Moderate decrease in GFR 30-59 4 Severe decrease in GFR 15-29 5 Kidney failure <15 (or dialysis) 14 SEE RESULT BELOW Name: LIANNA BEARD : [address]: Tete Chaparro NP Acct: [id number] Unit: [id number] AGE: 50 Location: [facility] Re06/17/15 SEX: F Status: REG REF SPEC: [id number] NIMISHA: 06/17/15-[address]: Tete Chaparro NP REQ: [id number] RECD: 06/17/15 STATUS: COMP _ SOURCE: URINE SPDESC: ORDERED: Urine Culture Procedure Result Reported Site Urine Culture Final 06/19/15- 936 ML No Growth (<1,000 CFU/mL) * ML - MAIN LAB (PSC1) . END OF REPORT * ML=Testing performed at Main Lab DEPARTMENT OF PATHOLOGY, [address] [place] [address] Wicho Tenorio M.D. Director [facility] # [id number] 15 Because ethnic data is not always readily available, this report includes an eGFR for both -Americans and non- Americans. The National Kidney Disease Education Program (NKDEP) does not endorse the use of the MDRD equation for patients that are not between the ages of 18 and 70, are , have extremes of body size, muscle mass, or nutritional status, or are non- or non-. According to the National Kidney Foundation, irrespective of diagnosis, the stage of the disease is based on the level of kidney function: Stage Description GFR(mL/min/1.73 m(2)) 1 Kidney damage with normal or decreased GFR 90 2 Kidney damage with mild decrease in GFR 60-89 3 Moderate decrease in GFR 30-59 4 Severe decrease in GFR 15-29 5 Kidney failure <15 (or dialysis) 16 Desirable <150 Borderline high 150-199 High 200-499 Very High >500 17 Desirable <200 Borderline high 200-239 High >239 18 Low <40 Desirable: 40-60 High: >60 19 Desirable: <100 mg/dL Near Optimal: 100-129 mg/dL Borderline High: 130-159 mg/dL High: 160-189 mg/dL Very High: >189 mg/dL 20 Because ethnic data is not always readily available, this report includes an eGFR for both -Americans and non- Americans. The National Kidney Disease Education Program (NKDEP) does not endorse the use of the MDRD equation for patients that are not between the ages of 18 and 70, are , have extremes of body size, muscle mass, or nutritional status, or are non- or non-. According to the National Kidney Foundation, irrespective of diagnosis, the stage of the disease is based on the level of kidney function: Stage Description GFR(mL/min/1.73 m(2)) 1 Kidney damage with normal or decreased GFR 90 2 Kidney damage with mild decrease in GFR 60-89 3 Moderate decrease in GFR 30-59 4 Severe decrease in GFR 15-29 5 Kidney failure <15 (or dialysis) 21 Because ethnic data is not always readily available, this report includes an eGFR for both -Americans and non- Americans. The National Kidney Disease Education Program (NKDEP) does not endorse the use of the MDRD equation for patients that are not between the ages of 18 and 70, are , have extremes of body size, muscle mass, or nutritional status, or are non- or non-. According to the National Kidney Foundation, irrespective of diagnosis, the stage of the disease is based on the level of kidney function: Stage Description GFR(mL/min/1.73 m(2)) 1 Kidney damage with normal or decreased GFR 90 2 Kidney damage with mild decrease in GFR 60-89 3 Moderate decrease in GFR 30-59 4 Severe decrease in GFR 15-29 5 Kidney failure <15 (or dialysis) 22 Because ethnic data is not always readily available, this report includes an eGFR for both -Americans and non- Americans. The National Kidney Disease Education Program (NKDEP) does not endorse the use of the MDRD equation for patients that are not between the ages of 18 and 70, are , have extremes of body size, muscle mass, or nutritional status, or are non- or non-. According to the National Kidney Foundation, irrespective of diagnosis, the stage of the disease is based on the level of kidney function: Stage Description GFR(mL/min/1.73 m(2)) 1 Kidney damage with normal or decreased GFR 90 2 Kidney damage with mild decrease in GFR 60-89 3 Moderate decrease in GFR 30-59 4 Severe decrease in GFR 15-29 5 Kidney failure <15 (or dialysis) 23 PT IS FASTING 24 PT IS FASTING 25 Because ethnic data is not always readily available, this report includes an eGFR for both -Americans and non- Americans. The National Kidney Disease Education Program (NKDEP) does not endorse the use of the MDRD equation for patients that are not between the ages of 18 and 70, are , have extremes of body size, muscle mass, or nutritional status, or are non- or non-. According to the National Kidney Foundation, irrespective of diagnosis, the stage of the disease is based on the level of kidney function: Stage Description GFR(mL/min/1.73 m(2)) 1 Kidney damage with normal or decreased GFR 90 2 Kidney damage with mild decrease in GFR 60-89 3 Moderate decrease in GFR 30-59 4 Severe decrease in GFR 15-29 5 Kidney failure <15 (or dialysis) 26 Desirable <150 Borderline high 150-199 High 200-499 Very High >500 27 Desirable <200 Borderline high 200-239 High >239 28 Low <40 Desirable: 40-60 High: >60 29 Desirable <100 Near Optimal 100-129 Borderline high 130-159 High 160-189 Very High >189 30 RUN DATE: 12/31/13 [facility] LAB LIVE PAGE 1 RUN TIME: [address] [place], [place] [address] Specimen Inquiry Name: LIANNA BEARD : [address]: Tete Chaparro NP Acct: [id number] Unit: [id number] AGE: 48 Location: [facility] Re12/30/13 SEX: F Status: REG REF SPEC: [id number] NIMISHA: 12/30/13-[address] [facility] [address]: Tete Chaparro NP REQ: [id number] RECD: 12/30/13-1820 STATUS: SOUT _ ORDERED: IMAGE ANALYSIS, HPV/Thin Prep FINAL DIAGNOSIS Negative for Intraepithelial lesion or Malignancy COMMENTS: Specimen sent to [facility] in [place], [place] on 12/31/13 by [id number] at 1048. Results will be reported separately. A. Ectocervical/Endocervical Specimen Adequacy: Satisfactory of evaluation Transformation zone component identified Patient Information: HPV: High risk HPV DNA testing regardless of pap results. Actual Specimen Date: 12/30/13 Last Menstrual Date: 12/16/13 ?: N Post Menopausal?: N Hysterectomy?: N Previous Abnormal Pap Smears?:N Signed (signature on file) CED Pickard (ASCP) 12/31 1107 This Pap test was evaluated with the assistance of the [employer] Test Imaging System. Due to cytologic findings at the molding line assistant microscope, comprehensive manual rescreening by a Community Theater Actor may be required. The Pap Smear is a screening test designed to aid in the detection of premalignant and malignant conditions of the uterine cervix. It is not a diagnostic procedure and should not be used as the sole means of detecting cervical cancer. Both false- positive and false- negative reports do occur. Depending on your risk status, a Pap smear shoudl be obtained and evaluated every 1-3 years. END OF REPORT * ML=Testing performed at Main Lab DEPARTMENT OF PATHOLOGY, [address] [place] [address] Wicho Tenorio M.D. Director [facility] # [id number] RESULT: Ectocervical/Endocervical 32 The following Other High Risk HPV types were not detected: 31, 33, 35, 39, 45, 51, 52, 56, 58, 59, 66, and 68 Test Performed by: [address] [address] Glass Technician/Installer: Tanvir Beckman III, M.D. 33 Because ethnic data is not always readily available, this report includes an eGFR for both -Americans and non- Americans. The National Kidney Disease Education Program (NKDEP) does not endorse the use of the MDRD equation for patients that are not between the ages of 18 and 70, are , have extremes of body size, muscle mass, or nutritional status, or are non- or non-. According to the National Kidney Foundation, irrespective of diagnosis, the stage of the disease is based on the level of kidney function: Stage Description GFR(mL/min/1.73 m(2)) 1 Kidney damage with normal or decreased GFR 90 2 Kidney damage with mild decrease in GFR 60-89 3 Moderate decrease in GFR 30-59 4 Severe decrease in GFR 15-29 5 Kidney failure <15 (or dialysis) 34 Because ethnic data is not always readily available, this report includes an eGFR for both -Americans and non- Americans. The National Kidney Disease Education Program (NKDEP) does not endorse the use of the MDRD equation for patients that are not between the ages of 18 and 70, are , have extremes of body size, muscle mass, or nutritional status, or are non- or non-. According to the National Kidney Foundation, irrespective of diagnosis, the stage of the disease is based on the level of kidney function: Stage Description GFR(mL/min/1.73 m(2)) 1 Kidney damage with normal or decreased GFR 90 2 Kidney damage with mild decrease in GFR 60-89 3 Moderate decrease in GFR 30-59 4 Severe decrease in GFR 15-29 5 Kidney failure <15 (or dialysis) 35 Because ethnic data is not always readily available, this report includes an eGFR for both -Americans and non- Americans. The National Kidney Disease Education Program (NKDEP) does not endorse the use of the MDRD equation for patients that are not between the ages of 18 and 70, are , have extremes of body size, muscle mass, or nutritional status, or are non- or non-. According to the National Kidney Foundation, irrespective of diagnosis, the stage of the disease is based on the level of kidney function: Stage Description GFR(mL/min/1.73 m(2)) 1 Kidney damage with normal or decreased GFR 90 2 Kidney damage with mild decrease in GFR 60-89 3 Moderate decrease in GFR 30-59 4 Severe decrease in GFR 15-29 5 Kidney failure <15 (or dialysis) 36 HDL Interpretation: Undesirable: High Risk: Less than 40 mg/dL Desirable: Low Risk: Greater than 60 mg/dL 37 LDL Interpretation: Low Risk Optimal Level: LDL Less than 100 mg/dL Near or Above Optimal: LDL 100-129 mg/dL Borderline High Risk: LDL 130-159 mg/dL High Risk: LDL 160-189 mg/dL Very High Risk: LDL Greater than 189 mg/dL 38 Because ethnic data is not always readily available, this report includes an eGFR for both -Americans and non- Americans. The National Kidney Disease Education Program (NKDEP) does not endorse the use of the MDRD equation for patients that are not between the ages of 18 and 70, are , have extremes of body size, muscle mass, or nutritional status, or are non- or non-. According to the National Kidney Foundation, irrespective of diagnosis, the stage of the disease is based on the level of kidney function: Stage Description GFR(mL/min/1.73 m(2)) 1 Kidney damage with normal or decreased GFR 90 2 Kidney damage with mild decrease in GFR 60-89 3 Moderate decrease in GFR 30-59 4 Severe decrease in GFR 15-29 5 Kidney failure <15 (or dialysis) 39 FASTING 40 RESULT: Ectocervical/Endocervical 41 For types 16, 18, 31, 33, 35, 39, 45, 51, 52, 56, 58, 59 and 68. Test Performed by: [address] [address] Glass Technician/Installer: Tanvir Beckman III, M.D. 42 RUN DATE: 12/31/12 [facility] LAB LIVE PAGE 1 RUN TIME: [address] [place] [id number] Specimen Inquiry Name: CHIRAGLIANNA L : [address]: Tete Chaparro NP Acct: [id number] Unit: [id number] AGE: 47 Location: [facility] Re12/29/12 SEX: F Status: REG REF SPEC: [id number] NIMISHA: 12/29/12-[address]: Tete Chaparro NP REQ: [id number] RECD: 12/29/12108 STATUS: SOUT _ ORDERED: THIN PREP, HPV / Thin Prep FINAL DIAGNOSIS Negative for Intraepithelial lesion or Malignancy COMMENTS: Specimen sent to [facility] in [place], [place] on 12/31/12 by [id number] at 1459. Results will be reported separately. A. Ectocervical/Endocervical Specimen Adequacy: Satisfactory of evaluation Transformation zone component identified Patient Information: HPV: High risk HPV DNA testing regardless of pap results. Actual Specimen Date: 12/29/12 LMP If Unknown: 2 days ago Cautery: N IUD: N Lesion, grossly demonstrate: N ?: N Post Menopausal?: N Hysterectomy?: N Previous Abnormal Pap Smears?:N Signed (signature on file) Zach Duran CED (ASCP) 12/31 1531 This Pap test was evaluated with the assistance of the [employer] Test Imaging System. Due to cytologic findings at the molding line assistant microscope, comprehensive manual rescreening by a Community Theater Actor may be required. The Pap Smear is a screening test designed to aid in the detection of premalignant and malignant conditions of the uterine cervix. It is not a diagnostic procedure and should not be used as the sole means of detecting cervical cancer. Both false- positive and false- negative reports do occur. Depending on your risk status, a Pap smear shoudl be obtained and evaluated every 1-3 years. END OF REPORT * ML=Testing performed at Main Lab DEPARTMENT OF PATHOLOGY, [address] [place] [address] Wicho Tenorio M.D. Director [facility] Permit #[id number] 43 Because ethnic data is not always readily available, this report includes an eGFR for both -Americans and non- Americans. The National Kidney Disease Education Program (NKDEP) does not endorse the use of the MDRD equation for patients that are not between the ages of 18 and 70, are , have extremes of body size, muscle mass, or nutritional status, or are non- or non-. According to the National Kidney Foundation, irrespective of diagnosis, the stage of the disease is based on the level of kidney function: Stage Description GFR(mL/min/1.73 m(2)) 1 Kidney damage with normal or decreased GFR 90 2 Kidney damage with mild decrease in GFR 60-89 3 Moderate decrease in GFR 30-59 4 Severe decrease in GFR 15-29 5 Kidney failure <15 (or dialysis) 44 Anion gap measurement may be of limited value in the presence of any alkalosis, especially in a combined acid base disorder. . 45 A metabolite of Naproxen, O-desmethylnaproxen, has been shown to interfere with the Jendrassik-Orion method for measuring total bilirubin. Samples from patients who have taken Naproxen have shown spurious elevation in total bilirubin levels. 46 Because ethnic data is not always readily available, this report includes an eGFR for both -Americans and non- Americans. The National Kidney Disease Education Program (NKDEP) does not endorse the use of the MDRD equation for patients that are not between the ages of 18 and 70, are , have extremes of body size, muscle mass, or nutritional status, or are non- or non-. According to the National Kidney Foundation, irrespective of diagnosis, the stage of the disease is based on the level of kidney function: Stage Description GFR(mL/min/1.73 m(2)) 1 Kidney damage with normal or decreased GFR 90 2 Kidney damage with mild decrease in GFR 60-89 3 Moderate decrease in GFR 30-59 4 Severe decrease in GFR 15-29 5 Kidney failure <15 (or dialysis) 47 Recommended INR for Patients on Oral Anticoagulants Prophylaxis 2.0 - 3.0 Treatment of thrombosis 2.0 - 3.0 Prevention of embolism 2.0 - 3.0 Prevention of embolism from prosthetic heart valves 2.5 - 3.5 48 DIAGNOSIS,TREATMENT,AND THERAPY MUST BE BASED ON THE INR VALUE ALONE. 49 Anion gap measurement may be of limited value in the presence of any alkalosis, especially in a combined acid base disorder. . 50 A metabolite of Naproxen, O-desmethylnaproxen, has been shown to interfere with the Jendrassik-Orion method for measuring total bilirubin. Samples from patients who have taken Naproxen have shown spurious elevation in total bilirubin levels. 51 Because ethnic data is not always readily available, this report includes an eGFR for both -Americans and non- Americans. The National Kidney Disease Education Program (NKDEP) does not endorse the use of the MDRD equation for patients that are not between the ages of 18 and 70, are , have extremes of body size, muscle mass, or nutritional status, or are non- or non-. According to the National Kidney Foundation, irrespective of diagnosis, the stage of the disease is based on the level of kidney function: Stage Description GFR(mL/min/1.73 m(2)) 1 Kidney damage with normal or decreased GFR 90 2 Kidney damage with mild decrease in GFR 60-89 3 Moderate decrease in GFR 30-59 4 Severe decrease in GFR 15-29 5 Kidney failure <15 (or dialysis) 52 Recommended INR for Patients on Oral Anticoagulants Prophylaxis 2.0 - 3.0 Treatment of thrombosis 2.0 - 3.0 Prevention of embolism 2.0 - 3.0 Prevention of embolism from prosthetic heart valves 2.5 - 3.5 53 DIAGNOSIS,TREATMENT,AND THERAPY MUST BE BASED ON THE INR VALUE ALONE. 54 Anion gap measurement may be of limited value in the presence of any alkalosis, especially in a combined acid base disorder. . 55 A metabolite of Naproxen, O-desmethylnaproxen, has been shown to interfere with the Jendrassik-J Luis method for measuring total bilirubin. Samples from patients who have taken Naproxen have shown spurious elevation in total bilirubin levels. 56 Because ethnic data is not always readily available, this report includes an eGFR for both -Americans and non- Americans. The National Kidney Disease Education Program (NKDEP) does not endorse the use of the MDRD equation for patients that are not between the ages of 18 and 70, are , have extremes of body size, muscle mass, or nutritional status, or are non- or non-. According to the National Kidney Foundation, irrespective of diagnosis, the stage of the disease is based on the level of kidney function: Stage Description GFR(mL/min/1.73 m(2)) 1 Kidney damage with normal or decreased GFR 90 2 Kidney damage with mild decrease in GFR 60-89 3 Moderate decrease in GFR 30-59 4 Severe decrease in GFR 15-29 5 Kidney failure <15 (or dialysis) 57 Anion gap measurement may be of limited value in the presence of any alkalosis, especially in a combined acid base disorder. . 58 A metabolite of Naproxen, O-desmethylnaproxen, has been shown to interfere with the Jendrassik-J Luis method for measuring total bilirubin. Samples from patients who have taken Naproxen have shown spurious elevation in total bilirubin levels. 59 Because ethnic data is not always readily available, this report includes an eGFR for both -Americans and non- Americans. The National Kidney Disease Education Program (NKDEP) does not endorse the use of the MDRD equation for patients that are not between the ages of 18 and 70, are , have extremes of body size, muscle mass, or nutritional status, or are non- or non-. According to the National Kidney Foundation, irrespective of diagnosis, the stage of the disease is based on the level of kidney function: Stage Description GFR(mL/min/1.73 m(2)) 1 Kidney damage with normal or decreased GFR 90 2 Kidney damage with mild decrease in GFR 60-89 3 Moderate decrease in GFR 30-59 4 Severe decrease in GFR 15-29 5 Kidney failure <15 (or dialysis) 60 Anion gap measurement may be of limited value in the presence of any alkalosis, especially in a combined acid base disorder. . 61 A metabolite of Naproxen, O-desmethylnaproxen, has been shown to interfere with the Jendrassik-J Luis method for measuring total bilirubin. Samples from patients who have taken Naproxen have shown spurious elevation in total bilirubin levels. 62 Because ethnic data is not always readily available, this report includes an eGFR for both -Americans and non- Americans. The National Kidney Disease Education Program (NKDEP) does not endorse the use of the MDRD equation for patients that are not between the ages of 18 and 70, are , have extremes of body size, muscle mass, or nutritional status, or are non- or non-. According to the National Kidney Foundation, irrespective of diagnosis, the stage of the disease is based on the level of kidney function: Stage Description GFR(mL/min/1.73 m(2)) 1 Kidney damage with normal or decreased GFR 90 2 Kidney damage with mild decrease in GFR 60-89 3 Moderate decrease in GFR 30-59 4 Severe decrease in GFR 15-29 5 Kidney failure <15 (or dialysis) Procedures Date CPT Code Description Status 03/19/2017 Mammogram Completed 01/17/2015 87206 Destruction Of Benign Lesions Any Method 1-14 lesions Completed 07/19/2014 Mammogram Completed 06/24/2014 24816 Inhalation [place] For Acute Airway Obstruction Completed W/Nebulizer/Inhaler 01/18/2014 Colonoscopy Completed 06/30/2013 Mammogram Completed 05/27/2012 26176 Inject/Drain Joint/Bursa Major Completed 02/12/2012 51489 Rad Shoulder Comp, Min. 2 Views Completed 01/30/2012 14270 Arthroplasty Glenohumeral Joint Hemiarthroplasty Completed 01/30/2012 70227 Tenodesis Biceps Long Tendon Completed 01/30/2012 57923 Tenodesis Biceps Long Tendon Completed 01/30/2012 07852 Arthroplasty Glenohumeral Joint Hemiarthroplasty Completed 01/07/2012 62252 EKG Tracing & Interpretation Completed 11/06/2011 Mammogram Completed 08/04/2010 Mammogram Completed 10/23/2006 27974 Holter Monitor Review (24 hr)dr rockwell & berna Completed only 10/14/2006 87926 EKG Tracing & Interpretation Completed Encounters Type Date Location Provider CPT E/M Dx Office Visit 02/19/2017 10:30a [facility] [place] [address] M25.511 C.M.A. M19.011 Z96.611 T84.84xA Office Visit 11/26/2016 10:20a [facility] [address] [facility] Tete Chaparro, N.P. 53074 L23.7 - [place] Office Visit 10/03/2016 2:40p [facility] [address] [facility] Tete Chaparro N.P. 27572 M79.671 - [place] M25.552 Office Visit 08/20/2016 3:20p [facility] [address] [facility] Tete Chaparro, N.P. 82254 Z00.01 - [place] Z12.31 J45.20 K21.9 E78.00 M25.50 M25.511 Office Visit 01/06/2016 11:40a [facility] [address] [facility] Tete Chaparro, N.P. 73163 L24.7 - [place] Office Visit 06/17/2015 1:20p [facility] [address] [facility] Tete Chaparro N.P. 63286 R94.4 - [place] M25.511 Office Visit 04/25/2015 11:00a [facility] Fan M.D. 10986 M25.511 Of C.M.A. Office Visit 04/05/2015 10:00a [facility] Fan M.D. 76818 Z47.1 Of C.M.A. Office Visit 08/23/2014 3:00p [facility] [address] [facility] Tete Chaparro, N.P. 58618 112.0 - [place] Office Visit 07/02/2014 2:20p [facility] [address] [facility] Tete Chaparro, N.P. 12866 466.0 - [place] 493.92 Office Visit 06/24/2014 10:20a [facility] [address] [facility] Tete Chaparro, N.P. 00341 466.0 - [place] 493.92 Office Visit 06/09/2014 2:40p [facility] [address] [facility] Tete Chaparro, N.P. 10668 564.00 - [place] 466.0 Office Visit 05/10/2014 11:30a [facility] [address] [place] [address] 053.29 - [place] Office Visit 12/30/2013 1:40p [facility] [address] [facility] Tete Chaparro, N.P. 74743 V70.0 - [place] V72.31 V76.10 493.90 530.81 272.4 783.1 218.9 Office Visit 09/08/2013 10:20a [facility] [address] [facility] Tete Chaparro, N.P. 64876 466.0 - [place] 380.4 Office Visit 06/19/2013 1:20p [facility] [address] [facility] Tete Chaparro, N.P. 23698 564.00 - [place] 719.41 Office Visit 01/27/2013 9:00a [facility] Fan M.D. 12173 715.31 C.MArchana 719.41 Office Visit 12/29/2012 2:00p [facility] [address] [facility] Tete Chaparro, N.P. 43877 V70.0 - [place] V72.31 V76.10 530.81 493.90 V77.91 709.9 564.09 V06.1 V03.82 719.45 Office Visit 10/28/2012 9:00a [facility] Fan M.D. 06196 716.91 C.M.A. Office Visit 08/26/2012 9:00a [facility] Fan M.D. 67883 716.91 C.M.A. Office Visit 06/26/2012 2:45p [facility] M.D. 55759 726.11 C.M.A. 719.41 726.10 715.11 Office Visit 05/27/2012 9:30a [facility] M.D. 26722 726.11 C.M.A. 719.41 726.10 Office Visit 01/07/2012 9:00a [facility] [address] [facility] Tete Chaparro, N.P. 15115 V72.84 - [place] 719.41 530.81 493.90 Office Visit 09/28/2011 11:15a [facility] Fan M.D. 35629 715.91 C.M.A. Office Visit 07/31/2011 3:00p [facility] M.D. 80611 715.91 C.M.A. Office Visit 07/20/2011 1:00p [facility] [address] [facility] Tete Chaparro, N.P. 67410 709.9 - [place] Office Visit 07/06/2011 2:20p [facility] [address] [facility] Tete Chaparro, N.P. 49218 719.41 - [place] Office Visit 02/21/2011 11:20a DO Not Use Tete Stasn, N.P. 21738 719.41 [facility] [employer] Office Visit 07/24/2010 8:45a DO Not Use Tete Varn, N.P. 61542 V70.0 [facility] 780.79 719.41 448.1 709.9 Office Visit 03/16/2010 9:45a DO Not Use [facility] Tete Varn, 83561 466.0 N.P. Office Visit 06/01/2009 10:00a DO Not Use [facility] Tete Varn, 68191 V70.0 N.P. Office Visit 02/24/2009 9:15a DO Not Use [facility] Tete Varn, 05103 692.6 N.P. 477.9 V04.81 Office Visit 12/13/2008 3:45p DO Not Use [facility] Tete Mcclellandcandelario, 48597 461.9 N.P. Office Visit 07/07/2008 10:45a DO Not Use [facility] [address] Gabinomadisynalea Samia, 00393 786.2 M.D. 493.90 Office Visit 10/14/2006 10:15a DO Not Use GabinoSamia noble, 63241 785.1 [facility] M.D. 429.3 Plan of Care Future Appointment(s):08/26/2018 2:20 pm - Tete Chaparro N.Linh at [facility] [address] [facility] - Bzknmiptd64/17/2018 8:45 am - Janet Garcia MD at [facility]08/23/2017 - Tete Chaparro NRehanaZ00.01 Encounter for general adult medical exam w abnormal findingsComments:For your routine health maintenance: I encourage you to continue with regular exercise and healthy nutrition. Your Tetanus immunization is up to date. You received this in 2012. It is good for 10 yearsunless you have a major injury, then it is good for 5 years.M25.511 Pain in right shoulderComments:Continue your current pain management.J45.909 Unspecified asthma, uncomplicatedComments:For your asthma: Continue with your current medication.If you should need to use your Albuterol more than twice weekly on a regular basis call the office.K21.9 Gastro- esophageal reflux disease without esophagitisComments:For your esophageal reflux : Continue with your current management. I advise you to avoid food triggers. These include: Spicy, greasy, and acidic foods, along with coffee and alcohol.D25.9 Leiomyoma of uterus, oobksapenuyR41.9 Hypothyroidism, unspecifiedComments:For your hypothyroidism: Continue with your current dose of medication. I am ordering blood work to check your thyroid levels.K59.00 Constipation, unspecifiedComments:to help you with oyur constipationI am referring you to a specialsit, Dr Rosas.Referral:Serena Rosas MD, WowogfqrihbscrazA27.33 Obstructive sleep apnea (adult) (pediatric)Referral:[facility], Sleep Disord,Diag/WziohrF62.31 Encntr screen mammogram for malignant neoplasm of breastNew Xrays:MG Screening MammogramComments:I have ordered your routine screening mammogram. The imaging department will give you your results at the time of your visit. I encourage you to do self exams. If you should notice any masses or thickening, please give the office a call.
--- OUTSIDE RECORDS SUMMARY | 2017-09-11 01:45 | XMS REPORT ---
:1965 External Reference #:[id number] Author Organization [facility] Address [address] [facility] [address] [place] [address] Phone [phone] Care Team Providers Name Role Phone Daniela Segovia MD Primary Care Physician Unavailable Payers Type Date Identification Payment Subscriber Numbers Provider Health Maintenance Effective: Policy Number: Medicare Chucky Akhtar (O) 06/10/[id number] [facility] Chirag Group Number: [id number] [address] [address] PayID: [id number] [place] [address] Medigap Part B Expires: 06/09/2013 Policy Number: [facility] Lianna Beard [id number] Group Number: [id number] [address] PayID: [id number] [place] [address] Advance Directives Type Date Description Status Comment [...] and () - age 86 Ribs Father [place] Father Hypertension Father Cancer, Esophagus Father Hyperlipidemia Father Arthritis, Osteo Mother due to Bradycardia () Mother due to Cancer, Lung () - in her 70's Cervical cancer, Hyperlipidemia,HTN First Brother Mental Illness age 54 Second Brother Hyperlipidemia Second Brother [place] Age 56 First Sister Mental Illness In a wheelchair but no one knows why age 58 Second Sister 52 Mental Illness Social History Type Date Description Comments Lives With spouce Occupation [employer] 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 2016 Lansoprazole 01/17/ Hx Capsules DR 30mg 90cap 1 by mouth [place] 2014 - s every day Varn, 01/05/ N.P. 2015 Nystatin 08/23/ Hx Suspension [id number] 16oz 4 112.0 [place] 2015 - t/ML milliliters Varn, 09/06/ four times a N.P. 2014 day, swish and swallow for 14 days Prednisone 06/24/ Hx Tablets 10mg 40tab as directed 466.0 [place] 2014 - s Varn, 07/10/ N.P. 2014 Ipratropium 06/24/ Hx Solution 0.5-2.5(3 60uni 1 vial in [facility].0 [place] 2014 - )mg/3ML ts nebulizer Varn, rol Sulfate 08/08/ three times N.P. 2014 a day as needed for asthma 493.90 Benzonatate 06/17/2014 - Hx Capsules 100mg 30caps one by mouth [place] 07/01/2014 three times Varn, N.P. daily as needed for cough Azithromycin 06/09/2014 - Hx Tablets 250mg 6tabs two tabs day [address] [place] [address] 06/19/2014 one, one daily .0 Varn, N.P. till gone Medrol (Severino) 06/09/2014 - Hx Tablets 4mg 1Pak as directed [address] [place] [address] 06/15/2014 .0 Varn, N.P. Prevacid 12/30/2013 - Hx Capsules DR 30mg 30caps Take One 530 [place] 01/06/2016 Capsule By .81 Varn, N.P. Mouth Every Day Benzonatate 09/10/2013 - Hx Capsules 100mg 30caps one by mouth [place] 09/24/2013 three times Varn, N.P. daily as needed for cough Azithromycin 09/08/2013 - Hx Tablets 250mg 6tabs two tabs day [address] [place] [address] 09/18/2013 one, one daily .0 Varn, N.P. till gone Medrol (Severino) 09/08/2013 - Hx Tablets 4mg 1Pak as directed [address] [place] [address] 09/14/2013 .0 Varn, N.P. 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 Prednisone - Hx Tablets 10mg 4 [...] CPT Code Status Date Vaccine Lot # [id number] Given 03/08/2017 Influenza Virus Vaccine, Quadrivalent, Split, Preservative Free [id number] Given 03/16/2016 Flu Vaccine NOS 50674 Given 03/20/2015 Flu Vaccine Split Virus Preservative Free For Indiv 3Yr Older Q2038 Given 04/04/2014 Fluzone Vaccine Q2038 Given 03/28/2013 Fluzone Vaccine 45691 Given 12/29/2012 Pneumonia Vaccine [id number] 39324 Given 12/29/2012 Tdap - Tetanus/Diptheria/Acellular Pertussis [id number] Q2035 Given 04/17/2012 Afluria Vaccine 23106 Given 04/06/2011 Influenza Virus 3Yrs & Over [id number] 43958 Given 05/04/2009 Influenza Virus Vaccine, Pandemic Formulation 02067 Given 05/04/2009 Administration Swine Flu Shot 12108 Given 02/24/2009 Influenza Virus 3Yrs & Over Vital Signs Date Vital Result Comment 08/13/2017 Height 61 inches 5'1" Weight 125.00 [...] 7 Erythrocyte Sed Rate 14 mm/Hr 0-30 Lipid Profile (Trig/Chol/HDL) 08/11/2016 Triglycerides 82 mg/dL 8 Cholesterol 220 mg/dL 9 HDL Cholesterol 52.6 mg/dL 10 LDL Cholesterol 151 mg/dL 11 Comp Metabolic Panel 08/11/2016 Sodium 138 mmol/L [...] Egfr Non- 76.1 >60 Egfr 97.9 >60 12 Comp Metabolic Panel 06/17/2015 Sodium 137 [...] 150-450 Mean Platelet Volume 9.7 um3 7.4-10.4 Comp Metabolic Panel 07/19/2011 Sodium 137 mmol/L 135-145 Potassium 4.3 mmol/L 3.5-5.0 Chloride 105 mmol/L 101-111 Co2 (Carbon Dioxide) 27.0 mmol/L 22-32 Anion Gap 5.0 mmol/L 2-11 52 Glucose 71 mg/dL 70-100 BUN 13 mg/dL 6-24 Creatinine 0.7 mg/dL 0.50-1.40 One Over Creatinine 1.42 BUN/Creatinine Ratio 18.6 8-20 Calcium 9.3 mg/dL 8.1-9.9 Total Protein 6.6 GM/DL 6.2-8.1 Albumin 3.9 GM/DL 3.6-5.4 Globulin 2.7 GM/DL 2-4 Albumin/Globulin Ratio 1.4 1-3 Bilirubin Total 0.9 mg/dL 0.4-1.5 53 Alkaline Phosphatase 52 U/L 30-110 Alt (SGPT) 17 U/L 14-54 Ast (Sgot) 18 U/L 12-42 eGFR Non- 89.3 > 60 eGFR 114.9 > 60 54 CBC No Diff 07/19/2011 White Blood Count 5.2 CUMM 4.8-10.8 Red Cell Count 4.23 CUMM 4.2-5.4 Hemoglobin 13.3 g/dL 12.0-16.0 Hematocrit 38 % 35-47 Mean Corpuscular Volume 90 um3 79-97 Mean Corpuscular Hemoglob 31 pg 27-31 Mean Corpuscular HGB Cone 35 g/dL 32-36 Redcell Distribution WDTH 13 % 10.5-15 Platelet Count 190 CUMM 150-450 Mean Platelet Volume 10.3 um3 7.4-10.4 Protime 07/19/2011 Inr 0.97 0.88-1.13 55 Protime 11.4 SEC 10.3-13.5 56 Comp Metabolic Panel 06/27/2011 Sodium 135 mmol/L [...] > 60 eGFR 114.9 > 60 59 CBC No Diff 03/22/2011 White Blood Count 8.0 CUMM 4.8-10.8 Red Cell Count 4.34 CUMM 4.2-5.4 Hemoglobin 13.6 g/dL 12.0-16.0 Hematocrit 40 % 35-47 Mean Corpuscular Volume 92 um3 79-97 Mean Corpuscular Hemoglob 31 pg 27-31 Mean Corpuscular HGB Cone 34 g/dL 32-36 Redcell Distribution WDTH 14 % 10.5-15 Platelet Count 214 CUMM 150-450 Mean Platelet Volume 10.2 um3 7.4-10.4 Comp Metabolic Panel 03/22/2011 Sodium 138 mmol/L [...] > 60 eGFR 98.9 > 60 62 1 Low risk: <1.00 Average risk: 1.00-3.00 [...] submitted in 7-14 days. Test Performed by: [place] [address] 7 Test Performed by: [place] [address] 8 Desirable <150 Borderline high 150-199 High 200-499 Very High >500 9 Desirable <200 Borderline high 200-239 High >239 10 Low <40 Desirable: 40-60 High: >60 11 Desirable: <100 mg/dL Near Optimal: 100-129 mg/dL Borderline High: 130-159 mg/dL High: 160-189 mg/dL Very High: >189 mg/dL 12 Because ethnic data is not always readily [...] 15-29 5 Kidney failure <15 (or dialysis) 13 Because ethnic data is not always [...] [address]: Tete Chaparro NP Acct: [id number] Unit: [id number] AGE: 50 Location: [facility] Re06/17/15 SEX: F Status: REG REF SPEC: [id number] NIMISHA: 06/17/15-[address] [facility] [address]: Tete Chaparro NP REQ: [id number] RECD: 06/17/15 STATUS: COMP _ SOURCE: URINE SPDESC: ORDERED: Urine Culture Procedure Result Reported Site Urine Culture Final 06/19/15- 936 ML No Growth (<1,000 CFU/mL) * ML - MAIN LAB ([facility]) . END OF REPORT * ML=Testing performed at Main Lab DEPARTMENT OF PATHOLOGY, [address] [place] [address] Wicho Tenorio M.D. Director [facility] # [id number] 15 Because ethnic data is not always [...] Very High >189 30 RUN DATE: 12/31/13 [facility] LAB LIVE PAGE 1 RUN TIME: 110[address] [place], [place] [address] Specimen Inquiry Name: LIANNA BEARD Afshin : [address]: Tete Chaparro NP Acct: [id number] Unit: [id number] AGE: 48 Location: [facility] Re12/30/13 SEX: F Status: REG REF SPEC: [id number] NIMISHA: 12/30/13-[address]: Tete Chaparro NP REQ: [id number] RECD: 12/30/13 STATUS: SOUT _ ORDERED: IMAGE ANALYSIS, HPV/Thin Prep FINAL DIAGNOSIS Negative for Intraepithelial lesion or Malignancy COMMENTS: Specimen sent to [facility] in [place], [place] on 12/31/13 by CYRUS at 1048. Results will be reported separately. [...] was evaluated with the assistance of the DocstocPrep Test Imaging System. Due to cytologic findings at the assessment manager microscope, comprehensive manual rescreening by a Technical Expert may be required. The Pap Smear is [...] performed at Main Lab DEPARTMENT OF PATHOLOGY, [address] [place] [address] Wicho Tenorio M.D. Director [facility] # [id number] 31 RESULT: Ectocervical/Endocervical 32 The following Other High Risk HPV types were not detected: 31, 33, 35, 39, 45, 51, 52, 56, 58, 59, 66, and 68 Test Performed by: [facility] [address] [address] Brush Sander: Tanvir Beckman III, M.D. 33 Because ethnic [...] 58, 59 and 68. Test Performed by: [address] [address] Brush Sander: Tanvir Beckman III, M.D. 42 RUN DATE: 12/31/12 [facility] LAB LIVE PAGE 1 RUN TIME: [address] [place] [address] Specimen Inquiry Name: LIANNA BEARD Afshin : [address]: Tete Chaparro NP Acct: [id number] Unit: [id number] AGE: 47 Location: [facility] Re12/29/12 SEX: F Status: REG REF SPEC: [id number] NIMISHA: 12/29/12-[address]: Tete Chaparro NP REQ: [id number] RECD: 12/29/12918 STATUS: SOUT _ ORDERED: THIN PREP, HPV / Thin Prep FINAL DIAGNOSIS Negative for Intraepithelial lesion or Malignancy COMMENTS: Specimen sent to [facility] in [place], [place] on 12/31/12 by [id number] at 1459. Results will be reported separately. [...] (signature on file) CED Pickard (ASCP) 12/31 1251 This Pap test was evaluated with the assistance of the DocstocPrep Test Imaging System. Due to cytologic findings at the assessment manager microscope, comprehensive manual rescreening by a Technical Expert may be required. The Pap Smear is [...] performed at Main Lab DEPARTMENT OF PATHOLOGY, [address] [place] [address] Wicho Tenorio M.D. Director [facility] Permit #[id number] 43 Because ethnic data is not always [...] has been shown to interfere with the Jendrassik-Perry method for measuring total bilirubin. Samples from [...] 5 Kidney failure <15 (or dialysis) 52 Anion gap measurement may be of limited value in the presence of any alkalosis, especially in a combined acid base disorder. . 53 A metabolite of Naproxen, O-desmethylnaproxen, has been shown to interfere with the Jendrassik-J Luis method for measuring total bilirubin. Samples from patients who have taken Naproxen have shown spurious elevation in total bilirubin levels. 54 Because ethnic data is not always readily [...] 15-29 5 Kidney failure <15 (or dialysis) 55 Recommended INR for Patients on Oral Anticoagulants Prophylaxis 2.0 - 3.0 Treatment of thrombosis 2.0 - 3.0 Prevention of embolism 2.0 - 3.0 Prevention of embolism from prosthetic heart valves 2.5 - 3.5 56 DIAGNOSIS,TREATMENT,AND THERAPY MUST BE BASED ON THE INR VALUE ALONE. 57 Anion gap measurement may be of limited value in the presence of any alkalosis, especially in a combined acid base disorder. . 58 A metabolite of Naproxen, O-desmethylnaproxen, has been shown to interfere with the Jendrassik-Perry method for measuring total bilirubin. Samples from [...] Code Description Status 03/19/2017 Mammogram Completed 01/17/2015 26573 Destruction Of Benign Lesions Any Method 1-14 lesions Completed 07/19/2014 Mammogram Completed 06/24/2014 04581 Inhalation TX For Acute Airway Obstruction Completed W/Nebulizer/Inhaler 01/18/2014 Colonoscopy Completed 06/30/2013 Mammogram Completed 05/27/2012 39988 Inject/Drain Joint/Bursa Major Completed 02/12/2012 37103 Rad Shoulder Comp, Min. 2 Views Completed 01/30/2012 00829 Arthroplasty Glenohumeral Joint Hemiarthroplasty Completed 01/30/2012 89107 Tenodesis Biceps Long Tendon Completed 01/30/2012 23179 Tenodesis Biceps Long Tendon Completed 01/30/2012 70867 Arthroplasty Glenohumeral Joint Hemiarthroplasty Completed 01/07/2012 38796 EKG Tracing & Interpretation Completed 11/06/2011 Mammogram Completed 08/04/2010 Mammogram Completed 10/23/2006 40850 Holter Monitor Review (24 hr)dr moiz restrepo; berna Completed only 10/14/2006 53699 EKG Tracing & Interpretation Completed Encounters Type Date Location Provider CPT E/M Dx Office Visit 02/19/2017 10:30a [facility] [place] [address] M25.511 C.M.A. M19.011 Z96.611 T84.84xA Office Visit 11/26/2016 10:20a [facility] Tete Chaparro, N.P. 76058 L23.7 - [place] Office Visit 10/03/2016 2:40p [facility] Tete Chaparro, N.P. 62979 M79.671 - [place] M25.552 Office Visit 08/20/2016 3:20p [facility] Tete Chaparro, N.P. 21639 Z00.01 - [place] Z12.31 J45.20 K21.9 E78.00 M25.50 M25.511 Office Visit 01/06/2016 11:40a [facility] Tete Chaparro, N.P. 33375 L24.7 - [place] Office Visit 06/17/2015 1:20p [facility] Tete Chaparro, N.P. 70177 R94.4 - [place] M25.511 Office Visit 04/25/2015 11:00a [facility] Fan M.D. 57831 M25.511 Of C.M.A. Office Visit 04/05/2015 10:00a [facility] Fan M.D. 18389 Z47.1 Of C.M.A. Office Visit 08/23/2014 3:00p [facility] Tete Chaparro, N.P. 83079 112.0 - [place] Office Visit 07/02/2014 2:20p [facility] Tete Chaparro N.P. 27285 466.0 - [place] 493.92 Office Visit 06/24/2014 10:20a [facility] Tete Chaparro N.P. 30509 466.0 - [place] 493.92 Office Visit 06/09/2014 2:40p [facility] Tete Chaparro, N.P. 98535 564.00 - [place] 466.0 Office Visit 05/10/2014 11:30a [facility] [place] [address] 053.29 - [place] Office Visit 12/30/2013 1:40p [facility] Tete Chaparro, N.P. 92224 V70.0 - [place] V72.31 V76.10 493.90 530.81 272.4 783.1 218.9 Office Visit 09/08/2013 10:20a [facility] Tete Chaparro, N.P. 01266 466.0 - [place] 380.4 Office Visit 06/19/2013 1:20p [facility] Tete Chaparro, N.P. 70041 564.00 - [place] 719.41 Office Visit 01/27/2013 9:00a [facility] Fan M.D. 06147 715.31 C.M.A. 719.41 Office Visit 12/29/2012 2:00p [facility] Tete Chaparro, N.P. 27994 V70.0 - [place] V72.31 V76.10 530.81 493.90 V77.91 709.9 564.09 V06.1 V03.82 719.45 Office Visit 10/28/2012 9:00a [facility] Fan M.D. 91979 716.91 C.M.A. Office Visit 08/26/2012 9:00a [facility] Fan M.D. 62602 716.91 C.M.A. Office Visit 06/26/2012 2:45p [facility] Fan M.D. 27859 726.11 C.M.A. 719.41 726.10 715.11 Office Visit 05/27/2012 9:30a [facility] Fan M.D. 90316 726.11 C.M.A. 719.41 726.10 Office Visit 01/07/2012 9:00a [facility] Tete Chaparro, N.P. 44992 V72.84 - [place] 719.41 530.81 493.90 Office Visit 09/28/2011 11:15a [facility] Fan M.D. 36241 715.91 C.M.A. Office Visit 07/31/2011 3:00p [facility] Fan M.D. 92724 715.91 C.M.A. Office Visit 07/20/2011 1:00p [facility] Tete Mcclellandn, N.P. 17258 709.9 - [place] Office Visit 07/06/2011 2:20p [facility] Tete Varn, N.P. 81527 719.41 - [place] Office Visit 02/21/2011 11:20a DO Not Use Tete Varn, N.P. 04249 719.41 [facility] Office Visit 07/24/2010 8:45a DO Not Use Tete Varn, N.P. 40376 V70.0 Statistics Manager[facility] 780.79 719.41 448.1 709.9 Office Visit 03/16/2010 9:45a DO Not Use [facility] Tete Varn, 40710 466.0 N.P. Office Visit 06/01/2009 10:00a DO Not Use Statistics Manager[facility] Tete Varn, 11437 V70.0 N.P. Office Visit 02/24/2009 9:15a DO Not Use Statistics Manager[facility] Tete Varn, 09663 692.6 N.P. 477.9 V04.81 Office Visit 12/13/2008 3:45p DO Not Use [facility] Manager[facility] Tete Varn, 88007 461.9 N.P. Office Visit 07/07/2008 10:45a [facility] [address]697 786.2 M.DKeyonna 493.90 Office Visit 10/14/2006 10:15a DO Not Use Samia Ordonez, 45750 785.1 [facility] 429.3 Plan of Care Future Appointment(s):09/24/2017 8:45 am - Janet Garcia MD at [facility]..08/23/2017 3:00 pm - Tete Chaparro NRehana at [facility] - Qtirpeijd68/06/2018 - Janet Garcia, MDM19.011 Primary osteoarthritis , right shoulderFollow up:Follow up: 1 month if still having pain in left shoulder and right knee 6 months kaffavdgsI63.511 Pain in right whaedykbN99.611 Presence of right artificial shoulder uzcwkF87.012D Strain of musc/tend the rotator cuff of left shoulder, subsNew Therapy:Physical ZjlwnnpD34.561 Pain in right kneeNew Xrays:Knee 3 Views RTNew Therapy:Physical SmqmsovG42.2x1 Patellofemoral disorders, right kneeNew Therapy:Physical Therapy
[2017-09-11] MEDS ORDERED: NS 0.9% 1000 ML* 1,000 ML IV ONE (02:05)
[2017-09-11] MEDS ORDERED: Ondansetron INJ* 2 MG/ML VIAL IV ONE (02:07)
[2017-09-11 02:47] LABS: ABS Basophils 0 10^3/ul (0-0.2); ABS Eosinophils 0.1 10^3/ul (0-0.6); ABS Lymphocytes 2.3 10^3/ul (1.0-4.8); ABS Monocytes 0.5 10^3/ul (0-0.8); ABS Neutrophils 4.9 10^3/ul (1.5-7.7); ABS Nucleated RBC 0 10^3/ul; Eosinophil % 1.2 % (0-6); Hematocrit 40 % (35-47); Hemoglobin 13.4 g/dl (12.0-16.0); Lymphocyte % 28.9 % (25-47); Mean Corpuscular HGB Conc 33 g/dl (31-36); Mean Corpuscular Hemoglobin 30 pg (27-31); Mean Corpuscular Volume 91 fL (80-97); Mean Platelet Volume 9.4 um3 (7.4-10.4); Nucleated Red Blood Cells % 0.1; Platelet Count 160 10^3/ul (150-450); Red Blood Count 4.41 10^6/ul (4.0-5.4); Red Cell Distribution Width 14 % (10.5-15); White Blood Count 7.9 10^3/ul (3.5-10.8)
[2017-09-11 03:02] LABS: EGFR Non-African American 75.8 (>60)
[2017-09-11 03:35] VITALS: BP 107/67
[2017-09-11 04:02] LABS: Urine Appearance Clear; Urine Blood Negative (Negative); Urine Color Straw; Urine Ketones Negative (Negative); Urine Protein Negative (Negative); Urine Specific Gravity 1.005 (1.010-1.030); Urine Urobilinogen Negative (Negative)
--- NOTE | 2017-09-11 19:13 | ED ---
Yuliana Valle Gabriel scribkasandra for aKy Miranda MD on 09/11/17 at 0234 . Dizziness - HPI Summary HPI Summary: This patient is a 52 year old F BIBA to [facility] accompanied by her friend with a chief complaint of a dizziness episode that occurred around midnight tonight. The patient rates the pain 5/10 in severity. Symptoms alleviated by zofran. Patient reports light headedness, diaphoresis, mental fogginess, and nausea. Patient denies LOC. Pt states she was up getting water for his dog when she felt general malaise and sat on toilet to try to gather herself. She also c/o left knee pain that occurred after she was walking on the treadmill. Takes tramadol daily for chronic pain. - History Of Current Complaint Chief Complaint: EDDizziness Stated Complaint: DIZZY Time Seen by Provider: 09/11/17 01:48 Hx Obtained From: Patient Onset/Duration: Resolved Timing: Intermittent Episode Lasting Severity Initially: Moderate Severity Currently: Moderate Character: Lightheaded Associated Signs And Symptoms: Positive: Other: - light headedness, diaphoresis , mental fogginess, and nausea - Allergies/Home Medications Allergies/Adverse Reactions: Allergies Allergy/AdvReac Type Severity Reaction Status Date / Time No Known Allergies Allergy Verified 07/12/13 09:15 PMH/Surg Hx/FS Hx/Imm Hx Endocrine/Hematology History: Reports: Hx Thyroid Disease Denies: Hx Diabetes Cardiovascular History: Denies: Hx Hypertension Respiratory History: Reports: Hx Asthma Denies: Hx Chronic Obstructive Pulmonary Disease (COPD) GI History: Denies: Hx Ulcer Musculoskeletal History: Reports: Hx Arthritis, Other Musculoskeletal History - CHRONIC RIGHT SHOULDER PAIN Sensory History: Reports: Hx Contacts or Glasses Opthamlomology History: Reports: Hx Contacts or Glasses - Cancer History Hx Chemotherapy: No Hx Radiation Therapy: No - Surgical History Surgery Procedure, Year, and Place: right shoulder, appy, fibroid tumor - Immunization History Date of Tetanus Vaccine: 2012 Date of Influenza Vaccine: Fall 2012 Infectious Disease History: No Infectious Disease History: Reports: Hx Shingles - 04/23 Denies: Hx Clostridium Difficile, Hx Hepatitis, Hx Human Immunodeficiency Virus (HIV), Hx of Known/Suspected MRSA, Hx Tuberculosis, Hx Known/Suspected VRE , Hx Known/Suspected VRSA, History Other Infectious Disease, Traveled Outside the [place] in Last 30 Days - Family History Known Family History: Positive: Cardiac Disease, Hypertension, Other - dyslidipemia Family History: NON CONTRIBUTORY - Social History Alcohol Use: Rare Substance Use Type: Reports: None Hx Tobacco Use: No Smoking Status (MU): Former Smoker Type: Cigarettes Review of Systems Positive: Skin Diaphoresis, Other - general malaise Positive: Nausea Neurological: Negative - LOC , Other - dizziness, light headedness, mental fogginess All Other Systems Reviewed And Are Negative: Yes Physical Exam - Summary Physical Exam Summary: VITAL SIGNS: Reviewed. GENERAL: Patient is a well-developed and nourished female who is lying comfortable in the stretcher. Patient is not in any acute respiratory distress. HEAD AND FACE: No signs of trauma. No ecchymosis, hematomas or skull depressions. No sinus tenderness. EYES: PERRLA, EOMI x 2, No injected conjunctiva, no nystagmus. EARS: Hearing grossly intact. Ear canals and tympanic membranes are within normal limits. MOUTH: Oropharynx within normal limits. NECK: Supple, trachea is midline, no adenopathy, no JVD, no carotid bruit, no c- spine tenderness, neck with full ROM. CHEST: Symmetric, no tenderness at palpation LUNGS: Clear to auscultation bilaterally. No wheezing or crackles. CVS: Regular rate and rhythm, S1 and S2 present, no murmurs or gallops appreciated. ABDOMEN: Soft, non-tender. No signs of distention. No rebound no guarding, and no masses palpated. Bowel sounds are normal. EXTREMITIES: FROM in all major joints, no edema, no cyanosis or clubbing. NEURO: Alert and oriented x 3. No acute neurological deficits. Speech is normal and follows commands. SKIN: Dry and warm Triage Information Reviewed: Yes Vital Signs On Initial Exam: Initial Vitals Temp Pulse Resp BP Pulse Ox 97.2 F 55 12 91/59 100 09/11/17 01:40 09/11/17 01:40 09/11/17 01:40 09/11/17 01:40 09/11/17 01:40 Vital Signs Reviewed: Yes Diagnostics - Vital Signs Vital Signs Temp Pulse Resp BP Pulse Ox 09/11/17 01:45 57 9 121/76 99 09/11/17 01:40 97.2 F 55 12 91/59 100 - Laboratory Result Diagrams: 09/11/17 02:31 09/11/17 02:31 Lab Statement: Any lab studies that have been ordered have been reviewed, and results considered in the medical decision making process. - EKG 2:25 Cardiac Rate: NL EKG Rhythm: Sinus Rhythm - at 52 BPM EKG Interpretation: 1st degree AV block, no ischemic changes Dizzy Course/Dx - Course Assessment/Plan: This patient is a 52 year old F BIBA to [facility] accompanied by her friend with a chief complaint of a dizziness episode that occurred around midnight tonight. The patient rates the pain 5/10 in severity. Symptoms alleviated by zofran. Patient reports light headedness, diaphoresis, mental fogginess, and nausea. Patient denies LOC. Pt states she was up getting water for his dog when she felt general malaise and sat on toilet to try to gather herself. She also c/o left knee pain that occurred after she was walking on the treadmill. Takes tramadol daily for chronic pain. An EKG reveals 1st degree AV block no ischemic changes. Test results with no significant abnormalities. In the ED course the patient was given zofran and IV fluids. Dx dizziness, pre syncope, vasovagal episode. Patient will be discharged and follow up from PCP. The patient is agreeable with this plan. - Diagnoses Provider Diagnoses: Vasovagal episode, Dizziness, Pre-syncope Discharge - Sign-Out/Discharge Documenting (check all that apply): Discharge - Discharge Plan Condition: Stable Disposition: HOME Patient Education Materials: Dizziness (ED) Referrals: Tete Chaparro NP [Primary Care Provider] - 3 Days Additional Instructions: RETURN TO THE EMERGENCY DEPARTMENT FOR CHANGING OR WORSENING SYMPTOMS. The documentation as recorded by the Yuliana snyder Gabriel accurately reflects the service I personally performed and the decisions made by , Kay Miranda MD.
== END 2017-09-11 03:39 | disposition home or self-care (01) ==
LOC: ED 01:36
DX: R55 Syncope and collapse (principal); R42 Dizziness and giddiness; R11.0 Nausea; Z87.891 Personal history of nicotine dependence
CPT/HCPCS: 36415; 80053; 81003; 81015; 83735; 84443; 84484; 85025; 87086; 93005; 96374; 99284

== ENCOUNTER 2019-07-17 16:46 | Emergency (ER) | payer MEDICARE ==
--- OUTSIDE RECORDS SUMMARY | 2019-07-17 16:51 | XMS REPORT | Continuity of Care Document ---
:1965 External Reference #:[id number] Author Name Tete Chaparro N.Linh (transmitted by agent of provider Dawn Whiteside) Address [address] [facility] [address], [place] [address] Care Team Providers Name Role Phone Samia Ordonez MD - Internal Care Team Information [employer] Worker Medicine Mayco Bailey MD - Dermatology Care Team Information [employer]forcing [employer] Worker [phone] Carol Damon MD - Physical Care Team Information [employer] Worker Medicine & Rehabilitation Daniela Segovia MD - Internal Care Team Information [employer] Worker [phone] Medicine Problems Active Problems Provider Date Asthma without status asthmaticus Tete Chaparro, N.P. Onset: 02/21/2011 Gastroesophageal reflux disease Tete Chaparro N.P. Onset: 02/21/2011 Gout Tete Chaparro N.P. Onset: 02/21/2011 Shoulder joint pain Jackson Fan M.D. Onset: 04/25/2015 Localized, primary osteoarthritis of Janet Garcia MD Onset: 08/13/2017 the shoulder region Prosthetic arthroplasty of shoulder Janet Garcia MD Onset: 08/13/2017 Knee pain Janet Garcia MD Onset: 08/13/2017 Derangement of knee Janet Garcia MD Onset: 08/13/2017 Strain of muscle(s) and tendon(s) of Janet Garcia MD Onset: 08/13/2017 the rotator cuff of left shoulder, subsequent encounter Obstructive sleep apnea syndrome Verónica Phillips DNP, RN, Onset: 05/06/2018 CHEMISTRY PROFESSOR-BC Fever Phoenix Cintron MD Onset: 10/09/2018 Cough Phoenix Cintron MD Onset: 10/09/2018 Mild persistent asthma Phoenix Cintron MD Onset: 10/09/2018 Acute bronchitis Phoenix Cintron MD Onset: 10/09/2018 Social History Type Date Description Comments Sex Unknown Tobacco Use Start: Unknown End: Former Cigarette Smoker Unknown Smoking Status Reviewed: 06/09/19 Former Cigarette Smoker ETOH Use Occasionally consumes alcohol Tobacco Use Start: Unknown End: Patient is a former smoked for 7 years Unknown smoker 2 ppd Recreational Drug Use Denies Drug Use Exercise Type/Frequency Exercises regularly daily walking Allergies, Adverse Reactions, Alerts Active Allergies Reaction Severity Comments Date Adhesive Tape 02/19/2017 Latex 12/30/2017 Medications Active Medications SIG Qnty Indications Ordering Date Provider Ipratropium take every 6 hours 90ml J45.30 Phoenix Cintron MD 10/09/2018 Oxford/Albuterol as needed for Sulfate wheezing and shortness of 0.5-2.5(3)mg/3ML breath not Solution relieved. Levothyroxine Sodium Take One Tablet By 30tabs Tete Chaparro, 08/06/2018 Mouth Every Day N.P. 50mcg Tablets Ciclopirox apply to affected 6.6units Tete Chaparro, 09/03/2017 8% toenails and N.P. Solution surrounding skin at bedtime-uses as needed Colace 2 po daily as 60caps Z00.01 Tete Chaparro, 08/20/2016 100mg Capsules needed N.P. Nebulizer use as needed 1units J20.8 Tete Chaparro, [facility] Flovent HFA inhale 2 puffs by 12units Jude Olivas NP 06/24/2014 mouth two times a 110mcg/Act Aerosol day as needed Ventolin HFA 2 puffs by mouth 1units Jude Olivas NP 04/15/2013 four times a day 108(90Base) mcg/Act as needed Aerosol Tessalon Perles one pill three Unknown 100mg times a day as Capsules needed for cough Bentyl as needed K58.2 Unknown 10mg Capsules Tylenol 2 tablets every 4 Unknown 325mg hours as needed Capsules for pain Co-Enzyme Q-10 1 by mouth every Unknown 300mg day Capsules Colchicine 1 by mouth twice a Unknown 0.6mg day as needed Tablets Lyrica take one cap at Unknown 150mg Capsules bedtime Gabapentin take one capsule 180caps Tete Varn, 300mg by mouth tid N.P. Capsules Tramadol HCL ER 1 tabs by mouth 15tabs Unknown 100mg every day Tablets ER 24HR Calcium Chew Two by mouth every 90units Unknown 500mg day Zofran 1 every 6 hours as 60tabs Tete Varn, 4mg Tablets needed nausea N.P. Senna S 2 po qd prn Unknown 8.6-50mg Tablets Tramadol HCL 1 tablet by mouth 120tabs Jackson Fan, 50mg four times a day M.D. Tablets as needed prn pain Medications Administered in Office Medication SIG Qnty Indications Ordering Provider Date Depomedrol 80MG Jackson Fan M.D. 05/27/2012 Injection Immunizations CPT Code Status Date Vaccine Lot # [id number] Given 02/23/2019 Influenza Virus Vaccine, Quadrivalent, Split, Preservative Free [id number] Given 03/04/2018 Influenza Virus Vaccine, Quadrivalent, Split, Preservative Free 23912 Given 03/08/2017 Influenza Virus Vaccine, Quadrivalent, Split, Preservative Free [id number] Given 03/16/2016 Flu Vaccine NOS [id number] Given 03/20/2015 Flu Vaccine Split Virus Preservative Free For Indiv 3Yr Older [id number] Given 04/04/2014 Fluzone Vaccine [id number] Given 03/28/2013 Fluzone Vaccine [id number] Given 12/29/2012 Pneumonia Vaccine [id number] Given 12/29/2012 Tdap - Tetanus/Diptheria/Acellular Pertussis [id number] Q2035 Given 04/17/2012 Afluria Vaccine 73309 Given 04/06/2011 Influenza Virus 3Yrs & Over [id number] 55632 Given 05/04/2009 Influenza Virus Vaccine, Pandemic Formulation 98166 Given 05/04/2009 Administration Swine Flu Shot 20095 Given 02/24/2009 Influenza Virus 3Yrs & Over Vital Signs Date Vital Result Comment 06/09/2019 2:57pm Height 61 inches 5'1" Weight 130.12 lb Heart Rate 76 /min BP Systolic Sitting 117 mmHg BP Diastolic Sitting 80 mmHg Body Temperature 97.2 F O2 % BldC Oximetry 98 % BMI (Body Mass Index) 24.6 kg/m2 11/04/2018 2:13pm Height 61 inches 5'1" Weight 128.38 lb Heart Rate 64 /min BP Systolic Sitting 138 mmHg Lue reg cuff BP Diastolic Sitting 68 mmHg Lue reg cuff Respiratory Rate 16 /min O2 % BldC Oximetry 97 % On Ra BMI (Body Mass Index) 24.3 kg/m2 Results Description No Information Available Procedures Date Code Description Status 09/09/2018 408082889 Bone Mineral Density Test Completed 04/10/2018 [id number] Mammogram Completed 03/19/2017 [id number] Mammogram Completed 07/19/2014 [id number] Mammogram Completed 01/18/2014 [id number] Colonoscopy Completed 06/30/2013 [id number] Mammogram Completed 11/06/2011 [id number] Mammogram Completed 08/04/2010 [id number] Mammogram Completed Medical Devices Description No Information Available Encounters Description No Information Available Assessments Date Code Description Provider 06/09/2019 M25.562 Pain in left knee Tete Chaparro NRehana Plan of Treatment Future Appointment(s):11/10/2019 11:00 am - Verónica Phillips DNP, RN, CHEMISTRY PROFESSOR- at [facility]08/28/2019 2:20 pm - Tete Chaparro NRehana at [facility] - [facility]06/09/2019 - Tete Chaparro NRehanaM25.562 Pain in left kneeNew Therapy:Physical TherapyComments:You have a strained medial collateral ligament. I have generated a referral for physical therapy.If you do not gradually improve, please contact the office. Functional Status Description No Information Available Mental Status Description No Information Available Referrals Description No Information Available
[2019-07-17 17:08] VITALS: BP 133/83
--- NOTE | 2019-07-17 17:19 | UC ---
Shoulder Pain HPI - HPI Summary HPI Summary: The patient is a 54-year-old female with a remote history of a right shoulder arthroplasty. She has since had chronic intermittent problems with her right shoulder. There has been remodeling of her glenoid fossa. She often has severe pains but these usually don't last more than a few hours and are controlled by her tramadol. She had the onset of similar shoulder pain this morning however it has not responded to the tramadol and has lasted much longer than she is used to. She is followed by Dr. Garcia for this issue. She tried to call the office however the office was closed due to inclement weather. - History of Current Complaint Chief Complaint: UCLowerExtremity Stated Complaint: RIGHT SHOULDER PAIN Time Seen by Provider: 07/17/19 16:53 Hx Obtained From: Patient Hx Last Menstrual Period: due shortly Onset/Duration: Sudden Onset, Lasting Hours Timing: Constant Severity Initially: Severe Severity Currently: Severe Pain Intensity: 8 Pain Scale Used: 0-10 Numeric Character: Sharp Aggravating Factor(s): Movement Alleviating Factor(s): Rest Associated Signs And Symptoms: Positive: Negative Related History: Dominant Hand Right Torso: 1 - pain - Allergies/Home Medications Allergies/Adverse Reactions: Allergies Allergy/AdvReac Type Severity Reaction Status Date / Time adhesive Allergy Rash Verified 07/17/19 16:58 latex Allergy Rash Verified 07/17/19 16:58 NSAIDS (Non-Steroidal AdvReac See Comment Verified 07/17/19 17:04 Anti-Inflamma Home Medications: Home Medications Acetaminophen 1 tab PO ONCE PRN 07/17/19 [History Confirmed 07/17/19] PMH/Surg Hx/FS Hx/Imm Hx Previously Healthy: Yes Endocrine History: Other Other Endocrine History: gout - Surgical History Surgical History: Yes Surgery Procedure, Year, and Place: RT SHOULDER - MULTIPLE. APPENDECTOMY. UTERINE CYST REMOVAL - Family History Known Family History: Positive: Cardiac Disease, Hypertension, Other - dyslidipemia, Non-Contributory Family History: NON CONTRIBUTORY - Social History Alcohol Use: Occasionally Substance Use Type: Marijuana Substance Use Comment - Amount & Last Used: medical marijuana Smoking Status (MU): Former Smoker Type: Cigarettes When Did the Patient Quit Smoking/Using Tobacco: quit age 16 Review of Systems All Other Systems Reviewed And Are Negative: Yes Constitutional: Positive: Negative Skin: Positive: Negative Eyes: Positive: Negative ENT: Positive: Negative Respiratory: Positive: Negative Cardiovascular: Positive: Negative Gastrointestinal: Positive: Negative Genitourinary: Positive: Negative Motor: Positive: Negative Neurovascular: Positive: Negative Musculoskeletal: Positive: Arthralgia Neurological: Positive: Negative Psychological: Positive: Negative Physical Exam Triage Information Reviewed: Yes Appearance: Well-Appearing, Pain Distress, Thin Vital Signs: Initial Vital Signs Temp 98.3 F 07/17/19 16:54 Pulse 59 07/17/19 16:54 Resp 18 07/17/19 16:54 BP 133/83 07/17/19 16:54 Pulse Ox 100 07/17/19 16:54 Vital Signs Reviewed: Yes Eyes: Positive: Conjunctiva Clear ENT: Negative: Nasal congestion, Nasal drainage, Trismus, Muffled voice, Hoarse voice Dental Exam: Normal Neck: Positive: Supple Respiratory: Positive: Lungs clear, Normal breath sounds, No respiratory distress, No accessory muscle use Cardiovascular: Positive: RRR Musculoskeletal: Positive: ROM Limited @ - right shoulder- patient guarding it - refusing ROM, Other: - not warm or red, distal n/v intact Neurological: Positive: Alert Psychological Exam: Normal Skin Exam: Normal Diagnostics - Radiology No standard instances Radiology Interpretation Completed By: Radiologist Summary of Radiographic Findings: STATUS POST RIGHT SHOULDER ARTHROPLASTY. THERE IS REMODELING OF THE GLENOID WHICH IS SIMILAR TO THE 2019 EXAMINATIONS Shoulder Course/Dx - Differential Dx/Diagnosis Provider Diagnosis: Right shoulder pain Discharge ED - Sign-Out/Discharge Documenting (check all that apply): Patient Departure All imaging exams completed and their final reports reviewed: Yes - Discharge Plan Condition: Stable Disposition: HOME Prescriptions: HYDROcodone/ACETAMIN 5-325 MG* [[facility] 5-325 TAB*] 1 tab PO Q4H PRN #15 tab MDD 6 PRN Reason: Pain - Severe Patient Education Materials: Shoulder Pain (ED) Referrals: Janet Garcia MD [Medical Doctor] - As Soon As Possible Additional Instructions: rest sling ice Take the hydrocodone instead of the tramadol until your pain level decreases. DON'T TAKE BOTH TOGETHER Opioid-containing medications can cause drowsiness and sedation. You t should not drive or operate machinery or similar activities while taking this medication. Opioids can also cause a positive drug screen, and can be habit- forming. You should follow the instructions exactly and not take any extra medication. Opioid medications should be stored in a secure manner to avoid diversion or theft. You should not drink alcohol while taking these medications The patient is status post right glenohumeral arthroplasty. There is no appreciable hardware failure or osteolysis. There is remodeling of the glenoid which is similar to the 2019 examination. - Billing Disposition and Condition Condition: STABLE Disposition: Home
== END 2019-07-17 18:05 | disposition home or self-care (01) ==
LOC: UCEAST 16:46
DX: M25.511 Pain in right shoulder (principal); Z88.6 Allergy status to analgesic agent; Z91.040 Latex allergy status; Z91.09 Other allergy status, other than to drugs and biological substances; Z87.891 Personal history of nicotine dependence; Z96.611 Presence of right artificial shoulder joint
CPT/HCPCS: 99213; G0463

== ENCOUNTER 2019-08-27 09:57 | Emergency (ER) | payer MEDICARE ==
[2019-08-27] MEDS ORDERED: Acetaminophen / Codeine* #3 (300 MG/30 MG) TAB PO ONE (10:20)
--- NOTE | 2019-08-27 10:30 | ED ---
Complex/Multi-Sys Presentation - HPI Summary HPI Summary: 54 year old F presenting to [facility] with a chief complaint of a sore throat since August 11 and a cough since August 20. Patient reports a red and runny nose. Patient states that she was seen by her PCP who tested her for the flu which was negative, and COVID-19. She has been quarantined since. She has been taking steroids and finished an Azithromycin course. She was taking cough medications and nebulizers for her symptoms which were lasting for 4 hours but are now only working for 1 hour. She denies any fever over 100.4 degrees, vomiting, or diarrhea. The patient is prescribed a daily inhaled steroid. She has never been hospitalized for asthma. She has not traveled internationally or been in contact with anyone that has COVID-19. The patient lives with someone who works at and is also sick. She does not feel that she needs a breathing treatment at this time. Medication list reviewed. Allergy list reviewed. Home Medications Medication Instructions Recorded Confirmed Type Albuterol HFA INHALER* [Ventolin 2 puff INH QID PRN 07/12/13 08/27/19 History HFA Inhaler*] Docusate CAP* [Colace Cap*] 200 mg PO DAILY PRN 07/12/13 08/27/19 History Fluticasone HFA 44 mcg(NF) 2 puff INH BID PRN 07/12/13 08/27/19 History [Flovent Hfa 44 mcg(NF)] Gabapentin CAP(*) [Neurontin 300 300 mg PO TID 07/12/13 08/27/19 History CAP(*)] Ondansetron ODT TAB* [Zofran 4 MG 4 mg PO Q6H PRN 07/12/13 08/27/19 History Odt TAB*] Senna TAB 8.6 mg* [Senokot 8.6 mg 2 tab PO DAILY PRN 07/12/13 08/27/19 History TAB*] Tramadol HCl [Tramadol HCl ER] 100 mg PO DAILY 07/12/13 08/27/19 History traMADol TAB* [Ultram*] 50 mg PO QID PRN 07/12/13 08/27/19 History Colchicine [Mitigare] 0.6 mg PO BID PRN 11/22/15 08/27/19 History Levothyroxine TAB* [Synthroid TAB*] 50 mcg PO DAILY 11/22/15 08/27/19 History Acetaminophen 650 mg PO Q4H PRN 07/17/19 08/27/19 History Benzonatate CAP* [Tessalon 100 MG 100 mg PO TID PRN 08/27/19 08/27/19 History CAP*] Calcium Carbonate [Calcium] 500 mg PO DAILY 08/27/19 08/27/19 History Ciclopirox/Urea/Camph/Men/Euc 8 % TOPICAL BEDTIME 08/27/19 08/27/19 History [Ciclopirox 8% Treatment Kit] Dicyclomine CAP* [Bentyl CAP*] 10 mg PO DAILY PRN 08/27/19 08/27/19 History Ipratropium/Albuterol Sulfate 3 ml INH Q6H PRN 08/27/19 08/27/19 History [Iprat-Albut 0.5-3(2.5) mg/3 ml] Pregabalin 100 mg CAP (*) [Lyrica 150 mg PO BEDTIME 08/27/19 08/27/19 History 100 mg CAP (*)] Ubidecarenone [Coq-10 Tr] 300 mg PO DAILY 08/27/19 08/27/19 History predniSONE 10 mg TAB [Deltasone 10 30 mg PO DAILY 08/27/19 08/27/19 History MG TAB*] - History Of Current Complaint Time Seen by Provider: 08/27/19 10:00 Hx Obtained From: Patient Onset/Duration: Lasting Days Timing: Constant Associated Signs And Symptoms: Positive: Other - Rhinorrhea - Allergies/Home Medications Allergies/Adverse Reactions: Allergies Allergy/AdvReac Type Severity Reaction Status Date / Time adhesive Allergy Rash Verified 07/17/19 16:58 latex Allergy Rash Verified 07/17/19 16:58 NSAIDS (Non-Steroidal AdvReac See Comment Verified 07/17/19 17:04 Anti-Inflamma Home Medications: Home Medications Albuterol HFA INHALER* [Ventolin HFA Inhaler*] 2 puff INH QID PRN 07/12/13 [ History Confirmed 08/27/19] Docusate CAP* [Colace Cap*] 200 mg PO DAILY PRN 07/12/13 [History Confirmed ] Fluticasone HFA 44 mcg(NF) [Flovent Hfa 44 mcg(NF)] 2 puff INH BID PRN 07/12/13 [History Confirmed 08/27/19] Gabapentin CAP(*) [Neurontin 300 CAP(*)] 300 mg PO TID 07/12/13 [History Confirmed 08/27/19] Ondansetron ODT TAB* [Zofran 4 MG Odt TAB*] 4 mg PO Q6H PRN 07/12/13 [History Confirmed 08/27/19] Senna TAB 8.6 mg* [Senokot 8.6 mg TAB*] 2 tab PO DAILY PRN 07/12/13 [History Confirmed 08/27/19] Tramadol HCl [Tramadol HCl ER] 100 mg PO DAILY 07/12/13 [History Confirmed 08/26] traMADol TAB* [Ultram*] 50 mg PO QID PRN 07/12/13 [History Confirmed 08/27/19] Colchicine [Mitigare] 0.6 mg PO BID PRN 11/22/15 [History Confirmed 08/27/19] Levothyroxine TAB* [Synthroid TAB*] 50 mcg PO DAILY 11/22/15 [History Confirmed 08/27/19] Acetaminophen 650 mg PO Q4H PRN 07/17/19 [History Confirmed 08/27/19] Acetaminophen with Codeine [Acetaminophen-Cod #3 Tablet] 1 each PO Q6HR PRN #20 tablet MDD 4 tablets 08/27/19 [Rx] Benzonatate CAP* [Tessalon 100 MG CAP*] 100 mg PO TID PRN 08/27/19 [History Confirmed 08/27/19] Calcium Carbonate [Calcium] 500 mg PO DAILY 08/27/19 [History Confirmed 08/27/19 ] Ciclopirox/Urea/Camph/Men/Euc [Ciclopirox 8% Treatment Kit] 8 % TOPICAL BEDTIME 08/27/19 [History Confirmed 08/27/19] Dicyclomine CAP* [Bentyl CAP*] 10 mg PO DAILY PRN 08/27/19 [History Confirmed ] Ipratropium/Albuterol Sulfate [Iprat-Albut 0.5-3(2.5) mg/3 ml] 3 ml INH Q6H PRN 08/27/19 [History Confirmed 08/27/19] Levofloxacin TAB* [Levaquin TAB*] 750 mg PO DAILY 7 Days #7 tab 08/27/19 [Rx] Pregabalin 100 mg CAP (*) [Lyrica 100 mg CAP (*)] 150 mg PO BEDTIME 08/27/19 [ History Confirmed 08/27/19] Ubidecarenone [Coq-10 Tr] 300 mg PO DAILY 08/27/19 [History Confirmed 08/27/19] predniSONE 10 mg TAB [Deltasone 10 MG TAB*] 30 mg PO DAILY 08/27/19 [History Confirmed 08/27/19] PMH/Surg Hx/FS Hx/Imm Hx Endocrine/Hematology History: Reports: Hx Thyroid Disease - hypothyroid Denies: Hx Diabetes Cardiovascular History: Denies: Hx Hypertension, Hx Pacemaker/ICD Respiratory History: Reports: Hx Asthma Denies: Hx Chronic Obstructive Pulmonary Disease (COPD) GI History: Denies: Hx Ulcer Musculoskeletal History: Reports: Hx Arthritis, Other Musculoskeletal History - CHRONIC RIGHT SHOULDER PAIN Denies: Hx Osteoporosis Sensory History: Reports: Hx Contacts or Glasses Denies: Hx Hearing Aid Opthamlomology History: Reports: Hx Contacts or Glasses Psychiatric History: Denies: Hx Panic Disorder - Cancer History Hx Chemotherapy: No Hx Radiation Therapy: No - Surgical History Surgery Procedure, Year, and Place: RT SHOULDER - MULTIPLE. APPENDECTOMY. UTERINE CYST REMOVAL - Immunization History Date of Tetanus Vaccine: 2012 Date of Influenza Vaccine: Fall 2012 Infectious Disease History: Reports: Hx Shingles - 04/23 Denies: Hx Clostridium Difficile, Hx Hepatitis, Hx Human Immunodeficiency Virus (HIV), Hx of Known/Suspected MRSA, Hx Tuberculosis, Hx Known/Suspected VRE , Hx Known/Suspected VRSA, History Other Infectious Disease - Family History Known Family History: Positive: Cardiac Disease, Hypertension, Other - dyslidipemia, Non-Contributory Family History: NON CONTRIBUTORY - Social History Alcohol Use: None Substance Use Type: Reports: Marijuana Substance Use Comment - Amount & Last Used: medical marijuana Hx Tobacco Use: Yes Smoking Status (MU): Former Smoker Type: Cigarettes Review of Systems Negative: Fever Positive: Sore Throat, Nasal Discharge Positive: Cough Negative: Vomiting, Diarrhea All Other Systems Reviewed And Are Negative: Yes Physical Exam - Summary Physical Exam Summary: Constitutional: Well-developed, Well-nourished, Alert. (-) Distressed, sitting comfortably in bed, speaking in full sentences Skin: Warm, Dry HENT: Normocephalic; Atraumatic Eyes: Conjunctiva normal Neck: Musculoskeletal ROM normal neck. (-) JVD, (-) Stridor, (-) Tracheal deviation Cardio: Rhythm regular, rate normal, Heart sounds normal; Intact distal pulses; Radial pulses are 2+ and symmetric. (-) Murmur Pulmonary/Chest wall: Effort normal. (-) Respiratory distress, (-) Wheezes, (-) Rales, frequent coughing, non-labored breathing Abd: Soft, (-) tenderness, (-) Distension, (-) Guarding, (-) Rebound Musculoskeletal: (-) Edema Lymph: (-) Cervical adenopathy Neuro: Alert, Oriented x3 Psych: Mood and affect Normal Triage Information Reviewed: Yes Vital Signs Reviewed: Yes Procedures - Sedation Patient Received Moderate/Deep Sedation with Procedure: No Diagnostics - Laboratory Result Diagrams: 08/27/19 11:10 08/27/19 10:20 Lab Statement: Any lab studies that have been ordered have been reviewed, and results considered in the medical decision making process. - Radiology Chest x-ray Radiology Interpretation Completed By: Radiologist Summary of Radiographic Findings: No radiographic evidence for acute cardiopulmonary abnormality on this. portable chest x-ray. ED physician has reviewed this report. Complex Multi-Symp Course/Dx Course Of Treatment: Patient is here with worsening cough in the setting of 15 days of URI symptoms. Patient has been tested for flu which is negative. Patient's overall well appearing in no respiratory distress. Patient has normal oxygen levels on room air. Patient had a chest x-ray showed no abnormality. Patient had blood or performed which was grossly unremarkable. Given patient's worsening symptoms and asthma history, patient was started on Levaquin which was given to her in the ED. Patient was also started on Tylenol with Codeine as a antitussive medicine. Patient will go back to quarantinng at home until her Covid 19 results come back - Diagnoses Provider Diagnoses: Asthma, Shortness of breath, Cough Discharge ED - Sign-Out/Discharge Documenting (check all that apply): Patient Departure - Discharge Plan Condition: Stable Disposition: HOME Prescriptions: Acetaminophen with Codeine [Acetaminophen-Cod #3 Tablet] 1 each PO Q6HR PRN #20 tablet MDD 4 tablets PRN Reason: Cough Levofloxacin TAB* [Levaquin TAB*] 750 mg PO DAILY 7 Days #7 tab Patient Education Materials: Asthma (ED), Upper Respiratory Infection (ED) Referrals: Tete Chaparro, [facility] [Primary Care Provider] - Additional Instructions: Take your new antibiotics and cold medications. Return to the emergency department if you cannot breath, you feel that you need to be admitted, or for any other concerning symptoms. The Health Department will contact you with your test results. Continue to quarantine yourself. You were seen in the emergency department for coronavirus rule out. The department of health will contact you within 24 hours. Due to the pandemic, you should stay in your house and self quarantine. See the separate quarantine paper for further instructions. You should wear a mask if you're outside of your personal room. We encourage handwashing as well as limited contact with other people including the elderly and the immunocompromised. If any studies were not completed at the time of discharge you will be called with the relevant results. Return to emergency department for severe trouble breathing, worsening or concerning symptoms It was a pleasure taking care of you today. - Billing Disposition and Condition Condition: STABLE Disposition: Home - Attestation Statements Document Initiated by Miguel Angel: Yes Documenting Scribe: Jodie Ambrose Provider For Whom Miguel Angel is Documenting (Include Credential): Gianluca Rucker MD Scribe Attestation: Jodie Valle scribed for Gianluca Rucker MD on 08/27/19 at 1349. Scribe Documentation Reviewed: Yes Provider Attestation: The documentation as recorded by the Jodie snyder accurately reflects the service I personally performed and the decisions made by , Gianluca Rucker MD Status of Scribe Document: Viewed
--- OUTSIDE RECORDS SUMMARY | 2019-08-27 10:42 | XMS REPORT | Continuity of Care Document ---
:1965 External Reference #:[id number] Author Name [facility] (transmitted by agent of provider Clifton Elizalde) Address [address] [place] [address] Care Team Providers Name Role Phone Samia Ordonez MD - Internal Care Team Information Shop Repairer Medicine Mayco Bailey MD - Dermatology Care Team Information Shop Repairer Carol Damon MD - Physical Care Team Information Shop Repairer Medicine & Rehabilitation Daniela Segovia MD - Internal Care Team Information Shop Repairer Medicine Problems Active Problems Provider Date Asthma without status asthmaticus Tete Chaparro, N.P. Onset: 02/21/2011 Gastroesophageal reflux disease Tete Chaparro, N.P. Onset: 02/21/2011 Gout Tete Chaparro, N.P. Onset: 02/21/2011 Shoulder joint pain Jackson [...] syndrome Verónica Phillips DNP, RN, Onset: 05/06/2018 MANAGER SUPPORT-BC Fever Phoenix Cintron MD Onset: 10/09/2018 Cough [...] Medications SIG Qnty Indications Ordering Date Provider Azithromycin two tabs day one, 6tabs Tete Chaparro, 08/21/2019 250mg one daily till N.P. Tablets gone Prednisone 4 tablets by mouth 40tabs Tete Chaparro, 08/21/2019 10mg for 4 days,3 N.P. Tablets tablets by mouth for 4 days, 2 tablets by mouth for 4 days, 1 tablet by mouth for 4 days Ipratropium take every 6 hours 90ml J45.30 Phoenix Cintron MD 10/09/2018 [place]/Albuterol as needed for Sulfate wheezing and shortness [...] as needed 1units J20.8 Tete Chaparro, 06/24/2014 Misc N.P. Flovent HFA inhale 2 puffs by 12units Jude Olivas NP 06/24/2014 mouth two times a 110mcg/Act Aerosol day as needed Ventolin HFA 2 puffs by mouth 1units Jude Olivas NP 04/15/2013 four times a day 108(90Base) mcg/Act as needed Aerosol Tessalon Perles one pill three 30caps Tete Varn, 100mg times a day as N.P. Capsules needed for cough Bentyl as needed [...] CPT Code Status Date Vaccine Lot # [id number] Given 02/23/2019 Influenza Virus Vaccine, Quadrivalent, Split, Preservative Free 15059 Given 03/04/2018 Influenza Virus Vaccine, Quadrivalent, Split, Preservative Free 11929 Given 03/08/2017 Influenza Virus Vaccine, Quadrivalent, Split, Preservative Free [id number] Given 03/16/2016 Flu Vaccine NOS 56966 Given 03/20/2015 Flu Vaccine Split Virus Preservative Free For Indiv 3Yr Older [id number] Given 04/04/2014 Fluzone Vaccine Q2038 Given 03/28/2013 Fluzone Vaccine 96049 Given 12/29/2012 Pneumonia Vaccine [id number] 07930 Given 12/29/2012 Tdap - Tetanus/Diptheria/Acellular Pertussis [id number] Q2035 Given 04/17/2012 Afluria Vaccine 54495 Given 04/06/2011 Influenza Virus 3Yrs & Over [id number] 80984 Given 05/04/2009 Influenza Virus Vaccine, Pandemic Formulation 45655 Given 05/04/2009 Administration Swine Flu Shot 96086 Given 02/24/2009 Influenza Virus 3Yrs & Over [...] BMI (Body Mass Index) 24.3 kg/m2 Results Test Acquired Date Facility Test Result H/L Range Note Lipid Profile 08/14/2019 [facility] Triglycerides 64 mg/dL 1 (Trig/Chol/HDL) [address] [place] [address] [phone] Cholesterol 244 mg/dL 2 HDL Cholesterol 65.2 mg/dL 3 LDL Cholesterol 166 mg/dL 4 Comp Metabolic 08/14/2019 [facility] Sodium 140 mmol/L Normal 135-145 Panel [address] [place] [address] [phone] Potassium 4.7 mmol/L Normal 3.5-5.0 Chloride 103 mmol/L Normal 101-111 Co2 Carbon Dioxide 34 mmol/L High 22-32 Anion Gap 3 mmol/L Normal 2-11 Glucose 76 mg/dL Normal 70-100 Blood Urea Nitrogen 12 mg/dL Normal 6-24 Creatinine 0.73 mg/dL Normal 0.51-0.95 BUN/Creatinine Ratio 16.4 Normal 8-20 Calcium 10.1 mg/dL Normal 8.6-10.3 Total Protein 6.6 g/dL Normal 6.4-8.9 Albumin 4.3 g/dL Normal 3.2-5.2 Globulin 2.3 g/dL Normal 2-4 Albumin/Globulin Ratio 1.9 Normal 1-3 Total Bilirubin 0.90 mg/dL Normal 0.2-1.0 Alkaline Phosphatase 97 U/L Normal 34-104 Alt 23 U/L Normal 7-52 Ast 21 U/L Normal 13-39 Egfr Non- 82.5 >60 Egfr 99.8 >60 5 Laboratory 08/14/2019 [facility] TSH (Thyroid 2.27 Normal 0.34 -5.60 6 test finding [address] Stim Horm) mcIU/[place] [address] [phone] 1 Desirable: <150 Borderline High: 150-199 High: 200-499 Very High: >500 2 Desirable: <200 Borderline High: 200-239 High: >239 3 Low: <40 Desirable: 40-60 High: >60 4 Desirable: <100 Near Optimal: 100-129 Borderline High: 130-159 High: 160-189 Very High: >189 5 Because ethnic data is not always readily [...] 15-29 5 Kidney failure <15 (or dialysis) 6 FASTING 10 HOUR Procedures Date Code Description Status 09/09/2018 344912084 Bone Mineral Density Test Completed 04/10/2018 [id number] Mammogram Completed 03/19/2017 56603142 Mammogram Completed 07/19/2014 [id number] Mammogram Completed 01/18/2014 00421099 Colonoscopy Completed 06/30/2013 [id number] Mammogram Completed 11/06/2011 [id number] Mammogram Completed 08/04/2010 17121930 Mammogram Completed Medical Devices Description No Information Available Encounters Type Date Location Provider Dx Diagnosis Office Visit 06/09/2019 [facility] Internal Tete Chaparro, M25.562 Pain in left [facility] 2:[facility] Ass[facility] Date Code Description Provider 06/09/2019 M25.562 Pain in left knee Tete Chaparro N.P. Plan of Treatment Future Appointment(s):11/10/2019 11:00 am - Verónica Phillips DNP, RN, MANAGER SUPPORT-BC at [facility]08/28/2019 2:20 pm - Tete Chaparro N.P. at [facility] Internal Medicine - [facility]06/09/2019 - Tete Chaparro N.P.M25.562 Pain in left kneeNew Therapy:Physical TherapyComments:You have a strained medial collateral ligament. I have generated a referral for physical therapy.If you do not gradually improve, please contact the office. Functional Status Description No Information Available Mental Status Description No Information Available Referrals Description No Information Available
--- OUTSIDE RECORDS SUMMARY | 2019-08-27 10:42 | XMS REPORT | Continuity of Care Document ---
:1965 External Reference #:[id number] Author Name [facility] (transmitted by agent of provider Clifton Elizalde) Address [address] [place] [address] Care Team Providers Name Role Phone Samia Ordonez MD - Internal Care Team Information Academic Administrator [phone] Medicine Mayco Bailey MD - Dermatology Care Team Information Academic Administrator [phone] Carol Damon MD - Physical Care Team Information Academic Administrator Medicine & Rehabilitation Daniela Segovia MD - Internal Care Team Information Academic Administrator Medicine Problems Active Problems Provider Date Asthma [...] syndrome Verónica Phillips DNP, RN, Onset: 05/06/2018 AUTOMATION DESIGN ENGINEER-BC Fever Phoenix Cintron MD Onset: 10/09/2018 Cough [...] hours 90ml J45.30 Phoenix Cintron MD 10/09/2018 [place]/Albuterol as needed for Sulfate wheezing and shortness of 0.5-2.5(3)mg/3ML breath not Solution relieved. Levothyroxine Sodium Take One Tablet By 30tabs Tete Chaparro, 08/06/2018 Mouth Every Day N.P. 50mcg Tablets Ciclopirox apply to affected 6.6units Tete Chaparro, 09/03/2017 8% toenails and N.P. Solution surrounding skin at bedtime-uses as needed Colace 2 po daily as 60caps Z00.01 Tete Chaparro, 08/20/2016 100mg Capsules needed N.P. Ipratropium 1 vial in 60units J45.30 Tete Chaparro, 06/24/2014 [place]/Albuterol nebulizer three N.P. Sulfate times a day as needed for asthma 0.5-2.5(3)mg/3ML Solution Nebulizer use as needed 1units J20.8 Tete [...] Jackson Fan, 50mg four times a day M.DKeyonna Tablets as needed prn pain Medications Administered in Office Medication SIG Qnty Indications Ordering Provider Date Depomedrol 80MG Jackson Fan M.D. 05/27/2012 Injection Immunizations CPT Code Status Date Vaccine Lot # [id number] Given 02/23/2019 Influenza Virus Vaccine, Quadrivalent, Split, Preservative Free 30164 Given 03/04/2018 Influenza Virus Vaccine, Quadrivalent, Split, Preservative Free 56361 Given 03/08/2017 Influenza Virus Vaccine, Quadrivalent, Split, Preservative Free Q2039 Given 03/16/2016 Flu Vaccine NOS 87475 Given 03/20/2015 Flu Vaccine Split Virus Preservative Free For Indiv 3Yr Older Q2038 Given 04/04/2014 Fluzone Vaccine Q2038 Given 03/28/2013 Fluzone Vaccine 09199 Given 12/29/2012 Pneumonia Vaccine [id number] 38572 Given 12/29/2012 Tdap - Tetanus/Diptheria/Acellular Pertussis [id number] Q2035 Given 04/17/2012 Afluria Vaccine 17183 Given 04/06/2011 Influenza Virus 3Yrs & Over [id number] 64916 Given 05/04/2009 Influenza Virus Vaccine, Pandemic Formulation 26777 Given 05/04/2009 Administration Swine Flu Shot 94984 Given 02/24/2009 Influenza Virus 3Yrs & Over [...] Date Facility Test Result H/L Range Note Laboratory test 08/24/2019 [facility] Covid19, PCR <pending> finding [address] [place] [address] [phone] Influenza A & B 08/24/2019 [facility] Flu AB (SEE NOTE) [address] [place] [address] [phone] Influenza A Molecular Negative Negative Influenza B Molecular Negative Negative 2 Lipid Profile 08/14/2019 [facility] Triglycerides 64 mg/dL 3 (Trig/Chol/HDL) [address] [place] [address] [phone] Cholesterol 244 mg/dL 4 HDL Cholesterol 65.2 mg/dL 5 LDL Cholesterol 166 mg/dL 6 Comp Metabolic 08/14/2019 [facility] Sodium 140 mmol/L Normal 135-[address] [place] [address] [phone] Potassium 4.7 mmol/L Normal 3.5-5.0 Chloride 103 [...] Egfr Non- 82.5 >60 Egfr 99.8 >60 7 Laboratory 08/14/2019 [facility] TSH (Thyroid 2.27 Normal 0.34 -5.60 8 test finding [address] Stim Horm) mcIU/[place] [address] [phone] 1 Suboptimal collection technique may reduce sensitivity of test. Refer to the [facility] Test Catalog for collection information: [email or web address] As with all diagnostic procedures, the laboratory results obtained should be used in conjunction with other clinical information available to the physician, including confirmation by another method, as applicable. 2 Electronic Parts Salesperson: [id number] Desirable: <150 Borderline High: 150-199 High: 200-499 Very High: >500 4 Desirable: <200 Borderline High: 200-239 High: >239 5 Low: <40 Desirable: 40-60 High: >60 6 Desirable: <100 Near Optimal: 100-129 Borderline High: 130-159 High: 160-189 Very High: >189 7 Because ethnic data is not always readily [...] 15-29 5 Kidney failure <15 (or dialysis) 8 FASTING 10 HOUR Procedures Date Code Description Status 09/09/2018 [id number] Bone Mineral Density Test Completed 04/10/2018 [id number] Mammogram Completed 03/19/2017 [id number] Mammogram Completed 07/19/2014 [id number] Mammogram Completed 01/18/2014 [id number] Colonoscopy Completed 06/30/2013 [id number] Mammogram Completed 11/06/2011 [id number] Mammogram Completed 08/04/2010 [id number] Mammogram Completed Medical Devices Description No Information Available Encounters Type Date Location Provider Dx Diagnosis Office Visit 06/09/2019 [facility] Internal Tete Chaparro M25.562 [facility] Ass[facility] Date Code Description Provider 06/09/2019 M25.562 Pain in left knee Tete Chaparro NKeyonnaPKeyonna Plan of Treatment Future Appointment(s):10/28/2019 1:00 pm - Tete Chaparro N.P. at [facility] Internal Medicine [facility]11/10/2019 11:00 am - Verónica Phillips DNP, RN, AUTOMATION DESIGN ENGINEER-BC at [facility]06/09/2019 - Tete Chaparro NRehanaM25.562 Pain in left kneeNew Therapy:Physical TherapyComments:You have a strained medial collateral ligament. I have generated a referral for physical therapy.If you do not gradually improve, please contact the office. Functional Status Description No Information Available Mental Status Description No Information Available Referrals Description No Information Available
[2019-08-27 11:15] LABS: Albumin 4.1 g/dL (3.2-5.2); Albumin/Globulin Ratio 1.6 (1-3); BUN/Creatinine Ratio 16.7 (8-20); C Reactive Protein 3.11 mg/L (<8.01); Calcium 9.4 mg/dL (8.6-10.3); EGFR African American 92.4 (>60); EGFR Non-African American 76.4 (>60); Globulin 2.6 g/dL (2-4); Potassium 3.6 mmol/L (3.5-5.0); Total Bilirubin 0.7 mg/dL (0.2-1.0); Total Protein 6.7 g/dL (6.4-8.9)
[2019-08-27 11:33] LABS: ABS Basophils 0.1 10^3/ul (0-0.2); ABS Lymphocytes 4.5 10^3/ul (1.0-4.8); ABS Monocytes 0.8 10^3/ul (0-0.8); ABS Neutrophils 6.7 10^3/ul (1.5-7.7); Eosinophil % 0.2 %; Hematocrit 40 % (35-47); Hemoglobin 13.8 g/dL (12.0-16.0); Lymphocyte % 37.3 %; Mean Corpuscular HGB Conc 35 g/dL (31-36); Mean Corpuscular Hemoglobin 30 pg (27-31); Mean Corpuscular Volume 88 fL (80-97); Mean Platelet Volume 9.1 fL (7.4-10.4); Nucleated Red Blood Cells % 0.1; Platelet Count 211 10^3/uL (150-450); Red Blood Count 4.54 10^6 /uL (3.70-4.87); Red Cell Distribution Width 14 % (10-15); White Blood Count 12.1 10^3/uL (3.5-10.8)
[2019-08-27 11:59] VITALS: BP 137/76
== END 2019-08-27 13:09 | disposition home or self-care (01) ==
LOC: ED 09:57
DX: J45.909 Unspecified asthma, uncomplicated (principal); E03.9 Hypothyroidism, unspecified; Z87.891 Personal history of nicotine dependence; Z90.89 Acquired absence of other organs; Z79.890 Hormone replacement therapy; Z79.891 Long term (current) use of opiate analgesic; Z79.899 Other long term (current) drug therapy; Z88.8 Allergy status to other drugs, medicaments and biological substances; Z91.040 Latex allergy status
CPT/HCPCS: 36415; 71045; 80053; 85025; 86140; 99283; A9270-GY